=== PATIENT | male | born 1955 | race American Indian/Alaskan Native ===

== ENCOUNTER 2016-12-05 00:19 | Inpatient (IN) | payer OTHER ==
[2016-12-05 01:03] LABS: Basophils % (Auto) 0.5 % (0.0-1.8); Eosinophils % (Auto) 1.7 % (0.0-4.3); Hematocrit 52.9 % (35.5-45.6); Mean Corpuscular HGB Conc 32 % (32-34); Mean Corpuscular Hemoglobin 30 pg (28-32); Mean Corpuscular Volume 94 fl (84-94); Platelet Count 188 K/mm3 (140-440); Red Blood Count 5.62 M/mm3 (3.65-5.03); Red Cell Distribution Width 14.1 % (13.2-15.2)
[2016-12-05 01:20] LABS: Anion Gap 20 mmol/L; Blood Urea Nitrogen 26 mg/dL (9-20); Calcium 9.3 mg/dL (8.4-10.2); Carbon Dioxide 27 mmol/L (22-30); Chloride 101.2 mmol/L (98-107); Glucose 94 mg/dL (75-100); Potassium 3.4 mmol/L (3.6-5.0); Sodium 145 mmol/L (137-145)
[2016-12-05] MEDS ORDERED: LOVENOX SUB-Q STA (08:20)
[2016-12-05] MEDS ORDERED: APRESOLINE IV ONE (08:21)
--- NOTE | 2016-12-05 08:21 | Emergency Department Report ---
ED General Adult HPI - General Chief complaint: Chest Pain Stated complaint: CHEST PAIN Time Seen by Provider: 12/05/16 08:13 Source: patient, RN notes reviewed Mode of arrival: Ambulatory Limitations: No Limitations - History of Present Illness Initial comments: Primary care Dr.: Dr. Butterfield This is a 60-year-old male. He is previously unknown to me. Reports a history of hypertension, gout, high cholesterol, rheumatoid arthritis. Patient reports a distant history of a flutter, which received ablation therapy. He presents to the ER complaining of left-sided chest pressure. It worsens with deep inspiration. No vomiting, diaphoresis or shortness of breath. There is no posterior extremity pain or swelling. No recent trips. No recent hospitalizations. As far as he knows, he is not currently in a flutter. Does not take systemic anticoagulation. There is no history of intracranial hemorrhage, no hematemesis, no bright red blood per rectum. -: Gradual Location: chest Radiation: non-radiation Severity scale (0 -10): 8 Quality: aching Worsens with: other (deep breath) Associated Symptoms: chest pain - Related Data Home Medications Medication Instructions Recorded Confirmed Last Taken Amlodipine Besylate [Norvasc] 5 mg PO DAILY 12/05/16 12/05/16 Unknown Aspirin [Aspirin BABY CHEW TAB] 81 mg PO QDAY 12/05/16 12/05/16 Unknown Atorvastatin Calcium [Lipitor] 20 mg PO QHS 12/05/16 12/05/16 Unknown Clonidine HCl [Kapvay] 0.1 mg PO BID 12/05/16 12/05/16 Unknown Colchicine [Colcrys] 0.6 mg PO DAILY 12/05/16 12/05/16 Unknown Febuxostat [Uloric] 40 mg PO QDAY 12/05/16 12/05/16 Unknown Meloxicam [Mobic] 7.5 mg PO QDAY 12/05/16 12/05/16 Unknown Metformin HCl [Metformin HCl ER] 500 mg PO QHS 12/05/16 12/05/16 Unknown Triamter/Hctz 37.5-25 mg 1 tab PO QAM 12/05/16 12/05/16 Unknown [Maxzide-25] Allergies Allergy/AdvReac Type Severity Reaction Status Date / Time No Known Allergies Allergy Verified 12/05/16 00:35 ED Review of Systems ROS: Stated complaint: CHEST PAIN Other details as noted in HPI Constitutional: denies: fever, malaise Eyes: denies: vision change ENT: denies: epistaxis Respiratory: see HPI Cardiovascular: chest pain Gastrointestinal: denies: abdominal pain, hematemesis, melena, hematochezia Genitourinary: denies: as per HPI, dysuria Musculoskeletal: denies: back pain Skin: denies: rash, lesions Neurological: denies: headache, weakness Psychiatric: as per HPI ED Past Medical Hx - Past Medical History Previous Medical History?: Yes Hx Hypertension: Yes Additional medical history: gout. - Surgical History Past Surgical History?: Yes Additional Surgical History: Cardio verted heart - Social History Smoking Status: Never Smoker Substance Use Type: Alcohol - Medications Home Medications: Home Medications Medication Instructions Recorded Confirmed Last Taken Type Amlodipine Besylate [Norvasc] 5 mg PO DAILY 12/05/16 12/05/16 Unknown History Aspirin [Aspirin BABY CHEW TAB] 81 mg PO QDAY 12/05/16 12/05/16 Unknown History Atorvastatin Calcium [Lipitor] 20 mg PO QHS 12/05/16 12/05/16 Unknown History Clonidine HCl [Kapvay] 0.1 mg PO BID 12/05/16 12/05/16 Unknown History Colchicine [Colcrys] 0.6 mg PO DAILY 12/05/16 12/05/16 Unknown History Febuxostat [Uloric] 40 mg PO QDAY 12/05/16 12/05/16 Unknown History Meloxicam [Mobic] 7.5 mg PO QDAY 12/05/16 12/05/16 Unknown History Metformin HCl [Metformin HCl ER] 500 mg PO QHS 12/05/16 12/05/16 Unknown History Triamter/Hctz 37.5-25 mg 1 tab PO QAM 12/05/16 12/05/16 Unknown History [Maxzide-25] ED Physical Exam - General Limitations: No Limitations General appearance: alert, in no apparent distress - Head Head exam: Present: atraumatic, normocephalic - Eye Eye exam: Present: normal appearance, EOMI. Absent: nystagmus - ENT ENT exam: Present: normal exam, normal orophraynx, mucous membranes moist, normal external ear exam - Neck Neck exam: Present: normal inspection, full ROM. Absent: tenderness, meningismus - Respiratory Respiratory exam: Present: normal lung sounds bilaterally. Absent: respiratory distress, wheezes, rales, rhonchi, stridor, decreased breath sounds - Cardiovascular Cardiovascular Exam: Present: normal rhythm, irregular rhythm, normal heart sounds. Absent: systolic murmur, diastolic murmur, rubs, gallop - GI/Abdominal GI/Abdominal exam: Present: soft, normal bowel sounds. Absent: distended, tenderness, guarding, rebound, rigid, pulsatile mass - Rectal Rectal exam: Present: deferred - Extremities Exam Extremities exam: Present: normal inspection, full ROM, normal capillary refill. Absent: tenderness, pedal edema, joint swelling, calf tenderness - Back Exam Back exam: Present: normal inspection, full ROM. Absent: tenderness, CVA tenderness (R), CVA tenderness (L), muscle spasm, paraspinal tenderness, vertebral tenderness - Neurological Exam Neurological exam: Present: alert, oriented X3, normal gait, other (Extraocular movements intact. Tongue midline. No facial droop. Facial sensation intact to light touch in the V1, V2, V3 distribution bilaterally. 5 and 5 strength in 4 extremities.. Sensation is intact to light touch in 4 extremities.). Absent : motor sensory deficit - Psychiatric Psychiatric exam: Present: normal affect, normal mood - Skin Skin exam: Present: warm, dry, intact, normal color. Absent: rash ED Course Vital Signs 12/05/16 12/05/16 12/05/16 00:22 04:54 06:54 Temperature 98.2 F 97.5 F L 98.4 F Pulse Rate 67 74 77 Respiratory 20 22 15 Rate Blood Pressure 185/120 203/143 Blood Pressure 177/112 [Left] O2 Sat by Pulse 98 97 94 Oximetry 12/05/16 12/05/16 12/05/16 06:59 07:01 10:34 Temperature Pulse Rate 76 74 Respiratory 15 15 Rate Blood Pressure 166/113 Blood Pressure [Left] O2 Sat by Pulse 94 94 Oximetry - Reevaluation(s) Reevaluation #1: 12/05/16 09:40 Differential diagnosis: Acute coronary syndrome, atrial flutter, ammonia, costochondritis Assessment and plan: 60-year-old male with multiple vascular risk factors, now in a flutter, which is new, no pulmonary embolus or DVT risk factors, low risk by well's criteria, moderate risk by KALINA score. By history, no contraindications to systemic anticoagulation. Chest x-ray essentially unremarkable, mild cardiomegaly is noted. Also noted to be somewhat hypertensive. Hydralazine is ordered. Lovenox, at 1 mg/kg is ordered. Case is discussed with the Hospital physician, Dr. Parra, who accepts the patient to his service. Case is discussed with cardiology, Farnaz Pittman/ Dr Horner; state that they will follow as a consult. Patient and family informed. Assessment and plan: 60-year-old male in new onset A. fib/flutter, with chest pain, to be admitted for further cardiac workup/evaluation. ED Medical Decision Making - Lab Data Result diagrams: 12/05/16 00:41 12/05/16 00:41 Vital Signs 12/05/16 12/05/16 12/05/16 00:22 04:54 06:54 Temperature 98.2 F 97.5 F L 98.4 F Pulse Rate 67 74 77 Respiratory 20 22 15 Rate Blood Pressure 185/120 203/143 Blood Pressure 177/112 [Left] O2 Sat by Pulse 98 97 94 Oximetry 12/05/16 12/05/16 06:59 07:01 Temperature Pulse Rate 76 Respiratory 15 15 Rate Blood Pressure Blood Pressure [Left] O2 Sat by Pulse 94 94 Oximetry Labs 12/05/16 12/05/16 12/05/16 00:41 00:41 04:03 WBC 10.0 RBC 5.62 H Hgb 17.0 H Hct 52.9 H MCV 94 MCH 30 MCHC 32 RDW 14.1 Plt Count 188 Lymph % (Auto) 24.4 [place] % (Auto) 10.3 H Eos % (Auto) 1.7 Baso % (Auto) 0.5 Lymph # 2.4 [place] # 1.0 H Eos # 0.2 Baso # 0.1 Seg Neutrophils % 63.1 Seg Neutrophils # 6.3 PT INR APTT Sodium 145 Potassium 3.4 L Chloride 101.2 Carbon Dioxide 27 Anion Gap 20 BUN 26 H Creatinine 0.8 Estimated GFR > 60 BUN/Creatinine Ratio 32.50 Glucose 94 Calcium 9.3 Total Creatine Kinase CK-MB (CK-2) CK-MB (CK-2) Rel Index Troponin T < 0.010 < 0.010 12/05/16 12/05/16 12/05/16 06:33 08:29 09:05 WBC RBC Hgb Hct MCV MCH MCHC RDW Plt Count Lymph % (Auto) [place] % (Auto) Eos % (Auto) Baso % (Auto) Lymph # [place] # Eos # Baso # Seg Neutrophils % Seg Neutrophils # PT 13.6 INR 1.05 APTT 30.0 Sodium Potassium Chloride Carbon Dioxide Anion Gap BUN Creatinine Estimated GFR BUN/Creatinine Ratio Glucose Calcium Total Creatine Kinase 242 H CK-MB (CK-2) 6.8 H CK-MB (CK-2) Rel Index 2.8 Troponin T < 0.010 < 0.010 - EKG Data -: EKG Interpreted by Ia EKG shows normal: axis - EKG Data When compared to previous EKG there are: previous EKG unavailable 12/05/16 09:42 atrial flutter, variable conduction, ventricular rate 79 bpm, QTC 490 ms, abnormal EKG, not morphologically consistent with STEMI. - Radiology Data Radiology results: report reviewed, image reviewed X-ray of the chest demonstrates cardiomegaly. No acute disease. Critical care attestation.: If time is entered above; I have spent that time in minutes in the direct care of this critically ill patient, excluding procedure time. ED Disposition Clinical Impression: Atrial flutter, Chest pain Disposition: OP ADMITTED IP TO THIS HOSP Is pt being admited?: Yes Does the pt Need Aspirin: Yes Condition: Fair
--- NOTE | 2016-12-05 08:46 | XRay Report ---
AP CHEST: HISTORY: chest pain There is mild cardiomegaly. Normal pulmonary vascularity. The lungs are clear. No evidence for pneumonia, CHF or pneumothorax. No overwhelming change since 06/24/08. IMPRESSION: Cardiomegaly.
[2016-12-05 08:52] LABS: INR 1.05 (0.87-1.13)
[2016-12-05] MEDS ORDERED: DULCOLAX PR PRN (08:53)
[2016-12-05] MEDS ORDERED: NITROSTAT SL PRN (08:53)
[2016-12-05] MEDS ORDERED: D50W (25GM) IV PRN (08:57)
[2016-12-05] MEDS ORDERED: ZOFRAN IV PRN (09:00)
[2016-12-05] MEDS ORDERED: TYLENOL PO PRN (09:00)
[2016-12-05 09:34] LABS: Creatine Kinase MB 6.8 ng/mL (0.0-4.0)
[2016-12-05 09:35] LABS: Creatine Kinase 242 units/L (55-170)
[2016-12-05] MEDS ORDERED: BABY ASPIRIN PO STA (09:44)
[2016-12-05] MEDS ORDERED: LEXISCAN IV ONE ×2 (09:57→10:04)
[2016-12-05] MEDS ORDERED: MILK OF MAGNESIA PO PRN (10:00)
[2016-12-05] MEDS ORDERED: SODIUM CHLORIDE FLUSH SYRINGE 10 ML IV PRN (10:00)
[2016-12-05] MEDS ORDERED: NON-FORMULARY (Febuxostat [Uloric] 40 MG) PO SCH (10:00)
--- NOTE | 2016-12-05 10:49 | Admit Criteria Form ---
Admission Criteria Documentation: CARDIOLOGY GRG Clinical Indications for Admission to Inpatient Care ( Place 'X' for any and all applicable criteria): Hospital admission is needed for appropriate care of the patient because of ANY ONE of the following (1): [ ] I. Hemodynamic instability as indicated by ALL of the following (1)(2)(3) (4)(5) [ ]a) Vital signs or other findings not as expected for chronic patient condition or baseline [ ]b) Instability indicated by ANY ONE of the following: [ ]i) Hypotension [ ]ii) Symptomatic Tachycardia unresponsive to treatment ( e.g., analgesia, fluids, sedation as indicated) [ ]iii) Inadequate perfusion indicated by ANY ONE of the following: [ ] 1) Lactic acidosis (> 2 mmol/L) [ ] 2) New abnormal capillary refill (> 3 seconds) [ ] 3) Reduced urine output [ ] 4) New altered mental status [ ]iv) Orthostatic vital sign changes unresponsive to treatment (e.g., fluids) [ ]v) IV inotropic or vasopressor medication required to maintain adequate blood pressure or perfusion [ ] II. Severe heart failure as indicated by ANY ONE of the following(17)(18) [ ]a) Respiratory distress [ ]b) Hypotension [ ]c) Anasarca (refractory to outpatient therapy) [ ]d) Cardiac arrhythmias of immediate concern [ ]e) Myocardial ischemia [ ] III. Cardiac arrhythmias or findings of immediate concern indicated by ANY ONE of the following (19)(20): [ ] a) Heart rhythms that are inherently dangerous or unstable indicated by ANY ONE of the following (21)(22)(23): [ ] i) Resuscitated ventricular fibrillation or cardiac arrest [ ] ii) Ventricular escape rhythm [ ] iii) Sustained ventricular tachycardia (30 seconds or more of ventricular rhythm at greater than 100 beats per minute) [ ] iv) Nonsustained ventricular tachycardia and ANY ONE of the following: [ ] 1) Suspected cardiac ischemia as cause or consequence of ventricular tachycardia [ ] 2) In setting of acute myocarditis [ ] b) Unstable cardiac conduction defects indicated by ANY ONE of the following(23)(24)(25) [ ] i) Type II second-degree atrioventricular block [ ]ii) Third-degree atrioventricular block [ ]iii) New-onset left bundle branch block with suspected myocardial ischemia [ ]c) Any heart rhythm and ANY ONE of the following (21)(22)(26)(27) (28) [ ] i) Continuous long-term ECG monitoring needed (e.g., initiation of drug requiring monitoring for more than 24 hours) [ ] ii) Patient has automatic implanted cardioverter defibrillator that is repeatedly firing, malfunctioning, or in need of immediate adjustment of settings beyond the scope of ambulatory or observation care [ ]d) Heart rhythms of concern due to ANY ONE of the following: [ ] i) Hypotension [ ] ii) Respiratory distress [ ] iii) Association with other significant symptoms (e.g., bradycardia with syncope or ongoing dizziness, supraventricular tachycardia with chest pain (14)(15)(17) [ ] IV. Monitoring for cardiac contusion beyond the scope of observation care needed [A](30)(31)(32) [ ] V. Surgical or device complication (e.g., valve replacement complication , pacemaker dysfunction) (35)(41)(44)(45)(46) [ ] . Inpatient palliative care needed. [B](49) Also use Inpatient Palliative Care Criteria [ ] VII. Nonbacterial thrombotic (marantic) endocarditis (36)(43)(47)(48) [X] VIII. Cardiology condition, symptom, or finding for which emergency and observation care has failed or are not considered appropriate. [ ] IX. Acute valvular disease requiring inpatient as indicated by ANY ONE of the following (41) [ ]a) Acute valvular regurgitation (42) [ ]b) Noninfectious valvulitis (43) [ ]c) Obstructive valve thrombosis [ ]d) Paravalvular leak [ ]e) Other significant valvular disorder remaining after emergency or observation level of care (as appropriate) [ ]X. Pericardial disease requiring inpatient treatment as indicated by ANY ONE of the following (33)(34)(35)(36)(37) [ ]a) Suspected tamponade (38)(39)(40) [ ]b) Hemopericardium [ ]c) Other significant pericardial disorder remaining after emergency or observation level of care (as appropriate) [ ] XI. Cardiac ischemia beyond scope of emergency and observation care. [ ] XII. Hypertension requiring inpatient treatment as indicated by ANY ONE of the following (6)(7)(8) [ ]a) SBP greater than 220 mm Hg or DBP greater than 120 mmHg despite treatment [ ]b) SBP greater than 140 mm Hg or DBP greater than 100 mm Hg with evidence of acute end organ damage as indicated by ANY ONE of the following [ ] i) Altered mental status [ ] ii) Acute renal failure as indicated by new onset of ANY ONE of the following (9)(10)(11)(12)(13) [ ]1) 3-fold rise in serum creatinine from baseline [ ]2) Serum creatinine greater than 4 mg/dL ( 354 micromoles/L) with acute rise greater than 0.5 mg/dL (44.2 micromoles/L) [ ]3) Reduction of more than 75% in estimated glomerular filtration rate from baseline [ ]4) Estimated glomerular filtration rate less than 35 mL/min/1.73m2 (0.59 mL/sec/1.73m2) in child up to 18 years of age [ ]5) Cessation of urine output indicated by ALL of the following [ ]A. Adequate volume status [ ]B. Inadequate urine output as indicated by ANY ONE of the following [ ]a. Urine output less than 0.3 mL/kg/hr for 24 hours [ ]b. Anuria (urine output less than 0.1 mL/kg/hr) for 12 hours [ ] iii) Aortic dissection [ ] iv) Myocardial Ischemia [ ] v) Left ventricular heart failure [ ]vi) Retinal Hemorrhage [ ]vii) Other significant finding [ ]c) Hypertension in child requiring inpatient treatment as indicated by ALL of the following(14)(15)(16) [ ] i) Outpatient treatment not effective, not available, or not appropriate [ ]ii) SBP or DBP greater than 95th percentile for age [ ]iii) Evidence of acute end organ damage as indicated by ANY ONE of the following [ ]1) Altered mental status [ ]2) Acute renal failure as indicated by new onset of ANY ONE of the following(9)(10)(11)(12)(13) [ ]A. 3-fold rise in serum creatinine from baseline [ ]B. Serum creatinine greater than 4 mg/dL (354 micromoles/L) with acute rise greater than 0.5 mg/dL (44.2 micromoles/L) [ ]C. Reduction of more than 75% in estimated glomerular filtration rate from baseline [ ]D. Estimated glomerular filtration rate less than 35 mL/min/1.73m2 (0.59 mL/sec/1.73m2) in child up to 18 years of age [ ]E. Cessation of urine output indicated by ALL of the following [ ]a. Adequate volume status [ ]b. Inadequate urine output as indicated by ANY ONE of the following [ ]i) Urine output less than 0.3 mL/kg/hr for 24 hours [ ]ii) Anuria ( urine output less than 0.1 mL/kg/hr) for 12 hours [ ]3) Severe headache [ ]4) Visual disturbance [ ]5) Retinal hemorrhage [ ]6) Other significant finding [ ]XIII. Complications of transplanted heart indicated by ANY ONE of the following(61): [ ]a) Acute graft rejection requiring inpatient management (eg, intravenous immunosuppression)(62)(63) [ ]b) Acute graft heart failure indicated by ANY ONE of the following(64): [ ]i) Hemodynamic instability [ ]ii) Cardiac arrhythmias of immediate concern [ ]iii) Pulmonary edema that is very severe (eg, mechanical ventilation needed, imminent or likely, need for 100% oxygen to keep oxygen saturation above 90%) [ ]iv) Pulmonary edema that is persistent as indicated by ALL of the following: [ ]1) New need for oxygen therapy to keep oxygen saturation above 90% (or increased FiO2 need from baseline) [ ]2) Has not improved sufficiently with emergency department or observation care IV diuretics or other heart failure treatments[E] [ ]v) Altered mental status that is severe or persistent [ ]vi) Increased creatinine (new on laboratory test) with reduction of more than 50% in estimated glomerular filtration rate from baseline [ ]vii) Progressively (ongoing) rising creatinine (known from past laboratory test) with reduction of more than 25% in estimated glomerular filtration rate from baseline [ ]viii) Acute renal failure [ ]ix) Acute peripheral ischemia (eg, examination shows pulseless, cool, mottled, or cyanotic extremity) [ ]x) Pulmonary artery catheter monitoring needed [ ]xi) Other sign or symptom of heart failure requiring inpatient treatment (ie, too severe or not responsive to outpatient and observation care treatment) [ ]c) Infection requiring inpatient management (eg, Hemodynamic instability, need for intravenous antimicrobial treatment)(66)(67)(68)(69)(70) [ ]d) Cardiac allograft vasculopathy requiring inpatient management ( eg evidence of cardiac ischemia)(71) [ ]e) Other complication of transplanted heart (eg, stroke, severe pulmonary hypertension, severe valvular dysfunction) requiring inpatient management(72) The original [facility] [employer] content created by [facility] has been revised. The portions of the content which have been revised are identified through the use of italic text or in bold, and [facility] has neither reviewed nor approved the modified material. All other unmodified content is copyright [facility] [employer]. Please see references footnoted in the original [facility] [employer] edition 2016 Admission Criteria Met: Yes
[2016-12-05 13:35] LABS: Creatine Kinase MB 6.3 ng/mL (0.0-4.0)
[2016-12-05 13:36] LABS: Creatine Kinase 237 units/L (55-170)
[2016-12-05] MEDS: COLCRYS PO SCH (14:42)
[2016-12-05] MEDS: CATAPRES PO SCH ×2 (14:43→21:44)
[2016-12-05] MEDS: NORVASC PO SCH (14:43)
[2016-12-05 16:18] LABS: Creatine Kinase MB 6.6 ng/mL (0.0-4.0)
--- NOTE | 2016-12-05 16:19 | History and Physical Report ---
History of Present Illness Date of examination: 12/05/16 Date of admission: 12/05/16 08:53 Chief complaint: Chest pain History of present illness: Patient is a pleasant 60-year-old male with a history of hypertension, gout, dyslipidemia, rheumatoid arthritis a flutter status post ablation about 7 years ago successfully stayed in sinus rhythm presents to the hospital today with complaint of chest pain which she describes as exertional and pleuritic in nature. He denies any nausea, vomiting, diarrhea, diaphoresis, chills, melena now saurabh blood per rectum. He does note occasional bilateral lower extremity swelling. Orthopnea.. The chest pain he describes as a 5/10 in intensity aggravated by deep inspiration and exertion. On arrival to the ER was noted to have atrial flutter with slow vascular response. Again patient denies any alleviating factors and his symptoms. He did not feel any fluttering sensation in his chest. He reports that since this ablation he has not been on any antiplatelet. ROS Constitutional: No fever, fatigue or weight loss. Skin: No rash. Eyes: No recent vision problems or eye pain. ENT: No congestion, ear pain, or sore throat. Endocrine: No thyroid problems. Cardiovascular: Chest pain Respiratory: No cough, shortness of breath, congestion, or wheezing. Gastrointestinal: No abdominal pain, nausea, vomiting, or diarrhea. Genitourinary: No dysuria. Musculoskeletal: No joint swelling. Neurologic: No seizures. Hematologic: No unusual bruising or bleeding. Psychiatric: No psychiatric problems, hallucinations or depression. All other systems reviewed and otherwise negative. Past History Past Medical History: arthritis, CAD, diabetes, hypertension, hyperlipidemia Past Surgical History: Other (cardiac ablation) Social history: , full code. denies: smoking, alcohol abuse Family history: no significant family history Medications and Allergies Allergies Allergy/AdvReac Type Severity Reaction Status Date / Time No Known Allergies Allergy Verified 12/05/16 00:35 Home Medications Medication Instructions Recorded Confirmed Last Taken Type Amlodipine Besylate [Norvasc] 5 mg PO DAILY 12/05/16 12/05/16 Unknown History Aspirin [Aspirin BABY CHEW TAB] 81 mg PO QDAY 12/05/16 12/05/16 Unknown History Atorvastatin Calcium [Lipitor] 20 mg PO QHS 12/05/16 12/05/16 Unknown History Clonidine HCl [Kapvay] 0.1 mg PO BID 12/05/16 12/05/16 Unknown History Colchicine [Colcrys] 0.6 mg PO DAILY 12/05/16 12/05/16 Unknown History Febuxostat [Uloric] 40 mg PO QDAY 12/05/16 12/05/16 Unknown History Meloxicam [Mobic] 7.5 mg PO QDAY 12/05/16 12/05/16 Unknown History Metformin HCl [Metformin HCl ER] 500 mg PO QHS 12/05/16 12/05/16 Unknown History Triamter/Hctz 37.5-25 mg 1 tab PO QAM 12/05/16 12/05/16 Unknown History [Maxzide-25] Active Meds: Active Medications Acetaminophen (Tylenol) 650 mg PO Q4H PRN PRN Reason: Pain MILD(1-3)/Fever >100.5/BRAVO Amlodipine Besylate (Norvasc) 2.5 mg PO DAILY [facility] Last Admin: 12/05/16 14:43 Dose: 2.5 mg Aspirin (Baby Aspirin) 81 mg PO QDAY [facility] Atorvastatin Calcium (Lipitor) 20 mg PO QHS [facility] Bisacodyl (Dulcolax) 10 mg MA QDAY PRN PRN Reason: Constipation unrelieved by MOM Clonidine HCl (Catapres) 0.1 mg PO Q12HR [facility] Last Admin: 12/05/16 14:43 Dose: 0.1 mg Colchicine (Colcrys) 0.6 mg PO DAILY [facility] Last Admin: 12/05/16 14:42 Dose: 0.6 mg Dextrose (D50w (25gm)) 50 ml IV PRN PRN PRN Reason: Hypoglycemia Insulin Aspart (Novolog) 0 units SUB-Q ACHS [facility] PRN Reason: Protocol Magnesium Hydroxide (Milk Of Magnesia) 30 ml PO Q4H PRN PRN Reason: Constipation Meloxicam (Mobic) 7.5 mg PO QDAY [facility] Miscellaneous Medication (Febuxostat [Uloric]) 40 mg PO QDAY [facility] Nitroglycerin (Nitrostat) 0.4 mg SL Q5M PRN PRN Reason: Chest Pain Ondansetron HCl (Zofran) 4 mg IV Q8H PRN PRN Reason: N/V unrelieved by Reglan Sodium Chloride (Sodium Chloride Flush Syringe 10 Ml) 10 ml IV PRN PRN PRN Reason: LINE FLUSH Stop: 12/15/16 09:59 Triamterene/HCTZ (Maxzide-25) 1 each PO QAM ANOOP Exam - Physical Exam Narrative exam: VITAL SIGNS: Reviewed. GENERAL: The patient appeared well nourished and normally developed. Vital signs as documented. HEAD: No signs of head trauma. EYES: Pupils are equal. Extraocular motions intact. EARS: Hearing grossly intact. MOUTH: Oropharynx is normal. NECK: No adenopathy, no JVD. CHEST: Chest with clear breath sounds bilaterally. No wheezes, rales, or rhonchi. CARDIAC: Regular rate and rhythm. S1 and S2, without murmurs, gallops, or rubs. VASCULAR: Trace Edema. Peripheral pulses normal and equal in all extremities. ABDOMEN: Soft, without detectable tenderness. No sign of distention. No rebound or guarding, and no masses palpated. Bowel Sounds normal. MUSCULOSKELETAL: Good range of motion of all major joints. Extremities without clubbing, cyanosis. Trace edema. NEUROLOGIC EXAM: Alert and oriented x 3. No focal sensory or strength deficits. Speech normal. Follows commands. PSYCHIATRIC: Mood normal. SKIN: No rash or lesions. - Constitutional Vitals: Temp Pulse Resp BP Pulse Ox 98.4 F 80 15 175/112 94 12/05/16 06:54 12/05/16 15:03 12/05/16 07:01 12/05/16 11:57 12/05/16 07:01 Results - Labs CBC & Chem 7: 12/05/16 00:41 12/05/16 00:41 Labs: Laboratory Last Values WBC 10.0 K/mm3 (4.5-11.0) 12/05/16 00:41 RBC 5.62 M/mm3 (3.65-5.03) H 12/05/16 00:41 Hgb 17.0 gm/dl (11.8-15.2) H 12/05/16 00:41 Hct 52.9 % (35.5-45.6) H 12/05/16 00:41 MCV 94 fl (84-94) 12/05/16 00:41 MCH 30 pg (28-32) 12/05/16 00:41 MCHC 32 % (32-34) 12/05/16 00:41 RDW 14.1 % (13.2-15.2) 12/05/16 00:41 Plt Count 188 K/mm3 (140-440) 12/05/16 00:41 Lymph % (Auto) 24.4 % (13.4-35.0) 12/05/16 00:41 [place] % (Auto) 10.3 % (0.0-7.3) H 12/05/16 00:41 Eos % (Auto) 1.7 % (0.0-4.3) 12/05/16 00:41 Baso % (Auto) 0.5 % (0.0-1.8) 12/05/16 00:41 Lymph # 2.4 K/mm3 (1.2-5.4) 12/05/16 00:41 [place] # 1.0 K/mm3 (0.0-0.8) H 12/05/16 00:41 Eos # 0.2 K/mm3 (0.0-0.4) 12/05/16 00:41 Baso # 0.1 K/mm3 (0.0-0.1) 12/05/16 00:41 Seg Neutrophils % 63.1 % (40.0-70.0) 12/05/16 00:41 Seg Neutrophils # 6.3 K/mm3 (1.8-7.7) 12/05/16 00:41 PT 13.6 Sec. (12.2-14.9) 12/05/16 08:29 INR 1.05 (0.87-1.13) 12/05/16 08:29 APTT 30.0 Sec. (24.2-36.6) 12/05/16 08:29 Sodium 145 mmol/L (137-145) 12/05/16 00:41 Potassium 3.4 mmol/L (3.6-5.0) L 12/05/16 00:41 Chloride 101.2 mmol/L (98-107) 12/05/16 00:41 Carbon Dioxide 27 mmol/L (22-30) 12/05/16 00:41 Anion Gap 20 mmol/L 12/05/16 00:41 BUN 26 mg/dL (9-20) H 12/05/16 00:41 Creatinine 0.8 mg/dL (0.8-1.5) 12/05/16 00:41 Estimated GFR > 60 ml/min 12/05/16 00:41 BUN/Creatinine Ratio 32.50 % 12/05/16 00:41 Glucose 94 mg/dL (75-100) 12/05/16 00:41 Calcium 9.3 mg/dL (8.4-10.2) 12/05/16 00:41 Magnesium 1.7 mg/dL (1.7-2.3) 12/05/16 12:54 Total Creatine Kinase 237 units/L (55-170) H 12/05/16 12:54 CK-MB (CK-2) 6.3 ng/mL (0.0-4.0) H 12/05/16 12:54 CK-MB (CK-2) Rel Index 2.6 (0-4) 12/05/16 12:54 Troponin T < 0.010 ng/mL (0.00-0.029) 12/05/16 12:54 TSH 1.380 mlU/mL (0.270-4.200) 12/05/16 12:54 - Imaging and Cardiology EKG: image reviewed (atrial flutter) Chest x-ray: image reviewed (no acute pathology) Assessment and Plan Assessment and plan: Patient is a pleasant 60-year-old male with a history of hypertension, gout, dyslipidemia, rheumatoid arthritis a flutter status post ablation about 7 years ago successfully stayed in sinus rhythm presents to the hospital today with complaint of chest pain which she describes as exertional and pleuritic in nature. He denies any nausea, vomiting, diarrhea, diaphoresis, chills, melena now saurabh blood per rectum. He does note occasional bilateral lower extremity swelling. Orthopnea.. The chest pain he describes as a 5/10 in intensity aggravated by deep inspiration and exertion. On arrival to the ER was noted to have atrial flutter with slow vascular response. Again patient denies any alleviating factors and his symptoms. He did not feel any fluttering sensation in his chest. He reports that since this ablation he has not been on any antiplatelet lesion. * Atrial flutter with slow vascular response * Atypical chest pain pleuritic in nature * Hypertension * Diabetes mellitus * Gout * Dyslipidemia * Morbid obesity * Hypokalemia Plan * Admit to telemetry consult cardiology as discussed with the cardiology service * Anticoagulation as initiated by the ER physician * Accu-Cheks before meals and at bedtime with insulin low-dose sliding scale * Weight loss modalities discussed in detail * We'll replace potassium and check magnesium levels * We'll order an echocardiogram * Resume home medications * DVT and GI prophylaxis * Discussed plan of care with the patient and spouse all questions answered in detail. Advance Directives: Yes VTE prophylaxis?: Chemical Plan of care discussed with patient/family: Yes
[2016-12-05 16:20] LABS: Creatine Kinase 226 units/L (55-170)
[2016-12-05] MEDS: NOVOLOG SUB-Q SCH ×2 (17:41→21:45)
[2016-12-05] MEDS: MOBIC PO SCH (17:43)
--- NOTE | 2016-12-05 17:43 | Consultation ---
History of Present Illness Consult date: 12/05/16 Consult reason: atrial fibrillation, chest pain History of present illness: The patient's a 60-year-old man with a history of hypertension, diabetes and atrial fibrillation. With regards to his atrial fibrillation, he describes an ablation procedure several years ago, which he states was successful following which he was taking off oral anticoagulation therapy. 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 There is no history of coronary artery disease or heart failure per patient report. He presented to the hospital at this time with atypical, musculoskeletal type left chest pain. The pain was described as worse when he raises his arm or turned from side to side. In the emergency room, ECGs showed atrial fibrillation, with well controlled ventricular response. The duration of the atrial fibrillation is uncertain and is probably chronic, no other recent ECGs are available for comparison. Cardiac isoenzymes were unremarkable. Today, he underwent a Persantine thallium stress test ordered by the medical team. Persantine thallium was negative with no ischemia, and near normal stress perfusion images. Echocardiogram also done today demonstrated normal left ventricle systolic function, with dilatation of the left and right atria consistent with his chronic atrial fibrillation. Past History Past Medical History: atrial fib, arthritis, diabetes, hypertension, hyperlipidemia Past Surgical History: Other (cardiac ablation) Social history: , full code. denies: smoking, alcohol abuse Family history: no significant family history Medications and Allergies Allergies Allergy/AdvReac Type Severity Reaction Status Date / Time No Known Allergies Allergy Verified 12/05/16 00:35 Home Medications Medication Instructions Recorded Confirmed Last Taken Type Amlodipine Besylate [Norvasc] 5 mg PO DAILY 12/05/16 12/05/16 Unknown History Aspirin [Aspirin BABY CHEW TAB] 81 mg PO QDAY 12/05/16 12/05/16 Unknown History Atorvastatin Calcium [Lipitor] 20 mg PO QHS 12/05/16 12/05/16 Unknown History Clonidine HCl [Kapvay] 0.1 mg PO BID 12/05/16 12/05/16 Unknown History Colchicine [Colcrys] 0.6 mg PO DAILY 12/05/16 12/05/16 Unknown History Febuxostat [Uloric] 40 mg PO QDAY 12/05/16 12/05/16 Unknown History Meloxicam [Mobic] 7.5 mg PO QDAY 12/05/16 12/05/16 Unknown History Metformin HCl [Metformin HCl ER] 500 mg PO QHS 12/05/16 12/05/16 Unknown History Triamter/Hctz 37.5-25 mg 1 tab PO QAM 12/05/16 12/05/16 Unknown History [Maxzide-25] Active Meds: Active Medications Acetaminophen (Tylenol) 650 mg PO Q4H PRN PRN Reason: Pain MILD(1-3)/Fever >100.5/BRAVO Amlodipine Besylate (Norvasc) 2.5 mg PO DAILY [facility] Last Admin: 12/05/16 14:43 Dose: 2.5 mg Aspirin (Baby Aspirin) 81 mg PO QDAY [facility] Atorvastatin Calcium (Lipitor) 20 mg PO QHS [facility] Bisacodyl (Dulcolax) 10 mg RI QDAY PRN PRN Reason: Constipation unrelieved by MOM Clonidine HCl (Catapres) 0.1 mg PO Q12HR [facility] Last Admin: 12/05/16 14:43 Dose: 0.1 mg Colchicine (Colcrys) 0.6 mg PO DAILY [facility] Last Admin: 12/05/16 14:42 Dose: 0.6 mg Dextrose (D50w (25gm)) 50 ml IV PRN PRN PRN Reason: Hypoglycemia Enoxaparin Sodium (Lovenox) 120 mg SUB-Q QDAY [facility] Insulin Aspart (Novolog) 0 units SUB-Q ACHS [facility] PRN Reason: Protocol Magnesium Hydroxide (Milk Of Magnesia) 30 ml PO Q4H PRN PRN Reason: Constipation Meloxicam (Mobic) 7.5 mg PO QDAY [facility] Miscellaneous Medication (Febuxostat [Uloric]) 40 mg PO QDAY [facility] Nitroglycerin (Nitrostat) 0.4 mg SL Q5M PRN PRN Reason: Chest Pain Ondansetron HCl (Zofran) 4 mg IV Q8H PRN PRN Reason: N/V unrelieved by Reglan Sodium Chloride (Sodium Chloride Flush Syringe 10 Ml) 10 ml IV PRN PRN PRN Reason: LINE FLUSH Stop: 12/15/16 09:59 Triamterene/HCTZ (Maxzide-25) 1 each PO QAM [facility] Review of Systems Cardiovascular: chest pain, rapid/irregular heart beat, shortness of breath, no orthopnea, no palpitations, no edema, no syncope, no lightheadedness Physical Examination Vital Signs Temp Pulse Resp BP Pulse Ox 98.2 F 67 20 185/120 98 12/05/16 00:22 12/05/16 00:22 12/05/16 00:22 12/05/16 00:22 12/05/16 00:22 General appearance: no acute distress HEENT: Positive: PERRL Neck: Positive: neck supple Cardiac: Positive: irregularly irregular Lungs: Positive: Decreased Breath Sounds Neuro: Positive: Grossly Intact Abdomen: Positive: Soft Male genitourinary: Positive: deferred Skin: Positive: Clear Extremities: Absent: edema Results 12/05/16 00:41 12/05/16 00:41 Cardiac Enzymes 12/05/16 12/05/16 12/05/16 Range/Units 09:05 12:54 15:25 CK-MB (CK-2) 6.8 H 6.3 H 6.6 H (0.0-4.0) ng/mL EKG interpretations - Telemetry EKG Rhythm: Atrial Fibrillation Assessment and Plan - Patient Problems (1) Atrial fibrillation Current Visit: Yes Status: Acute Qualifiers: Atrial fibrillation type: A Plan to address problem: The patient's atrial fibrillation is of uncertain duration, and is probably chronic. He does carry a history of atrial fibrillation/flutter in the remote past and underwent ablation therapy. At this time, his rate control is optimal, but will be prudent to initiate oral anticoagulation therapy with warfarin, target INR 2.0-3.0. (2) Chest pain Current Visit: Yes Status: Acute Qualifiers: Chest pain type: C Plan to address problem: Patient's chest pain is atypical, likely musculoskeletal. Nevertheless, he underwent a Persantine thallium stress test which was negative for ischemia. Echocardiogram shows well-preserved left ventricle systolic function. No further cardiac ischemic workup is indicated.
[2016-12-05] MEDS: MAXZIDE-25 PO SCH (17:44)
--- NOTE | 2016-12-05 21:46 | Treadmill Report ---
THALLIUM STRESS TEST LEFT VENTRICLE: Left ventricular chamber size is at the upper limits of normal. Perfusion study demonstrates a fixed basal inferior defect, worse on the resting study. Normal apical thinning is noted. No reversible defects identified. Gated analysis is not available due to the patient's atrial fibrillation. CONCLUSION: Fixed basal inferior defect, consistent with diaphragmatic attenuation artifact. Otherwise, normal stress myocardial perfusion scan. No ischemia identified on this study. Clinical correlation is recommended. [facility]# [id number] [place]/NTS
[2016-12-06 06:11] LABS: Anion Gap 17 mmol/L; BUN/Creatinine Ratio 25.71; Basophils % (Auto) 0.4 % (0.0-1.8); Blood Urea Nitrogen 18 mg/dL (9-20); Calcium 8.7 mg/dL (8.4-10.2); Carbon Dioxide 27 mmol/L (22-30); Chloride 102.7 mmol/L (98-107); Eosinophils % (Auto) 2.1 % (0.0-4.3); Glucose 121 mg/dL (75-100); Hematocrit 52.9 % (35.5-45.6); Hemoglobin 17.4 gm/dl (11.8-15.2); Mean Corpuscular HGB Conc 33 % (32-34); Mean Corpuscular Hemoglobin 31 pg (28-32); Mean Corpuscular Volume 93 fl (84-94); Platelet Count 182 K/mm3 (140-440); Potassium 3.3 mmol/L (3.6-5.0); Red Cell Distribution Width 14.1 % (13.2-15.2); Sodium 143 mmol/L (137-145); White Blood Count 9.3 K/mm3 (4.5-11.0)
[2016-12-06] MEDS ORDERED: K-DUR PO ONE (08:30)
[2016-12-06] MEDS: NORVASC PO SCH (09:30)
[2016-12-06] MEDS: COLCRYS PO SCH (09:30)
[2016-12-06] MEDS: CATAPRES PO SCH (09:35)
[2016-12-06] MEDS: NOVOLOG SUB-Q SCH ×2 (09:36→13:28)
[2016-12-06] MEDS ORDERED: BABY ASPIRIN PO SCH (10:00)
[2016-12-06] MEDS ORDERED: LOVENOX SUB-Q SCH ×2 (10:00)
--- NOTE | 2016-12-06 10:43 | Progress Note ---
<EDMUNDO ZEPEDA - Last Filed: 12/06/16 10:42> Assessment and Plan Chest pain Persantine thallium was negative with no ischemia. Echocardiogram also done today demonstrated normal left ventricle systolic function, with dilatation of the left and right atria consistent with his chronic atrial fibrillation. Subjective Date of service: 12/06/16 Interval history: No cardiac events reported overnight. Patient has no complaints. Objective Vital Signs Temp Pulse Pulse Pulse Resp BP BP 12/06/16 09:35 70 151/105 12/06/16 09:30 70 151/105 12/06/16 08:20 98.1 F 70 22 151/105 12/06/16 07:59 12/06/16 06:29 98.0 F 83 H 138/93 12/06/16 03:30 68 12/06/16 01:05 98.0 F 82 18 151/89 12/05/16 21:44 152/107 12/05/16 21:13 98.4 F 88 22 152/107 12/05/16 16:00 97.2 F L 74 20 145/85 12/05/16 15:03 80 12/05/16 11:57 79 175/112 12/05/16 11:56 736 H 166/104 12/05/16 11:55 74 178/111 12/05/16 11:54 84 169/107 12/05/16 11:53 101 H 168/81 12/05/16 11:52 71 181/106 Pulse Ox 12/06/16 09:35 12/06/16 09:30 12/06/16 08:20 98 12/06/16 07:59 94 12/06/16 06:29 94 12/06/16 03:30 12/06/16 01:05 95 12/05/16 21:44 12/05/16 21:13 97 12/05/16 16:00 96 12/05/16 15:03 12/05/16 11:57 12/05/16 11:56 12/05/16 11:55 12/05/16 11:54 12/05/16 11:53 12/05/16 11:52 - Physical Examination General: No Apparent Distress HEENT: Positive: PERRL Neck: Positive: neck supple Cardiac: Positive: irregularly irregular Lungs: Positive: Decreased Breath Sounds Neuro: Positive: Grossly Intact Extremities: Absent: edema - Labs and Meds Cardiac Enzymes 12/05/16 12/05/16 Range/Units 12:54 15:25 CK-MB (CK-2) 6.3 H 6.6 H (0.0-4.0) ng/mL CBC 12/06/16 Range/Units 04:00 WBC 9.3 (4.5-11.0) K/mm3 RBC 5.70 H (3.65-5.03) M/mm3 Hgb 17.4 H (11.8-15.2) gm/dl Hct 52.9 H (35.5-45.6) % Plt Count 182 (140-440) K/mm3 Lymph # 2.1 (1.2-5.4) K/mm3 [place] # 1.0 H (0.0-0.8) K/mm3 Eos # 0.2 (0.0-0.4) K/mm3 Baso # 0.0 (0.0-0.1) K/mm3 Comprehensive Metabolic Panel 12/06/16 Range/Units 04:00 Sodium 143 (137-145) mmol/L Potassium 3.3 L (3.6-5.0) mmol/L Chloride 102.7 (98-107) mmol/L Carbon Dioxide 27 (22-30) mmol/L BUN 18 (9-20) mg/dL Creatinine 0.7 L (0.8-1.5) mg/dL Glucose 121 H (75-100) mg/dL Calcium 8.7 (8.4-10.2) mg/dL - Imaging and Cardiology EKG: image reviewed (atrial flutter) <MADHU KAUFFMAN - Last Filed: 12/06/16 10:57> Assessment and Plan patient is doing well. He is rate controlled Will start eliquis, discontinue lovenox start toprol XL discontinue asa and meloxicam may go home cardiac fisher no further cardiac work-up will sign off Objective Vital Signs Temp Pulse Pulse Pulse Resp BP BP 12/06/16 09:35 70 151/105 12/06/16 09:30 70 151/105 12/06/16 08:20 98.1 F 70 22 151/105 12/06/16 07:59 12/06/16 06:29 98.0 F 83 H 138/93 12/06/16 03:30 68 12/06/16 01:05 98.0 F 82 18 151/89 12/05/16 21:44 152/107 12/05/16 21:13 98.4 F 88 22 152/107 12/05/16 16:00 97.2 F L 74 20 145/85 12/05/16 15:03 80 12/05/16 11:57 79 175/112 12/05/16 11:56 736 H 166/104 12/05/16 11:55 74 178/111 12/05/16 11:54 84 169/107 12/05/16 11:53 101 H 168/81 12/05/16 11:52 71 181/106 Pulse Ox 12/06/16 09:35 12/06/16 09:30 12/06/16 08:20 98 12/06/16 07:59 94 12/06/16 06:29 94 12/06/16 03:30 12/06/16 01:05 95 12/05/16 21:44 12/05/16 21:13 97 12/05/16 16:00 96 12/05/16 15:03 12/05/16 11:57 12/05/16 11:56 12/05/16 11:55 12/05/16 11:54 12/05/16 11:53 12/05/16 11:52 - Labs and Meds Cardiac Enzymes 12/05/16 12/05/16 Range/Units 12:54 15:25 CK-MB (CK-2) 6.3 H 6.6 H (0.0-4.0) ng/mL CBC 12/06/16 Range/Units 04:00 WBC 9.3 (4.5-11.0) K/mm3 RBC 5.70 H (3.65-5.03) M/mm3 Hgb 17.4 H (11.8-15.2) gm/dl Hct 52.9 H (35.5-45.6) % Plt Count 182 (140-440) K/mm3 Lymph # 2.1 (1.2-5.4) K/mm3 [place] # 1.0 H (0.0-0.8) K/mm3 Eos # 0.2 (0.0-0.4) K/mm3 Baso # 0.0 (0.0-0.1) K/mm3 Comprehensive Metabolic Panel 12/06/16 Range/Units 04:00 Sodium 143 (137-145) mmol/L Potassium 3.3 L (3.6-5.0) mmol/L Chloride 102.7 (98-107) mmol/L Carbon Dioxide 27 (22-30) mmol/L BUN 18 (9-20) mg/dL Creatinine 0.7 L (0.8-1.5) mg/dL Glucose 121 H (75-100) mg/dL Calcium 8.7 (8.4-10.2) mg/dL
[2016-12-06] MEDS: MOBIC PO SCH (10:50)
[2016-12-06] MEDS: MAXZIDE-25 PO SCH (10:50)
[2016-12-06] MEDS ORDERED: TOPROL XL PO SCH (11:00)
[2016-12-06 13:28] VITALS: BP 149/93
--- NOTE | 2016-12-06 13:43 | Discharge Summary ---
Providers - Providers Date of Admission: 12/05/16 08:53 Date of discharge: 12/06/16 Attending physician: BRIANNE FISHER Primary care physician: OFELIA CRAMER Hospitalization Condition: Stable Hospital course: AFib per Cardiology, Dr. Verde: patient is doing well. He is rate controlled Will start eliquis, discontinue lovenox start toprol XL discontinue asa and meloxicam may go home cardiac fisher no further cardiac work-up will sign off Disposition: DISCHARGED TO HOME OR SELFCARE Core Measure Documentation - Palliative Care Palliative Care/ Comfort Measures: Not Applicable - Core Measures Any of the following diagnoses?: none - VTE Discharge Requirements Deep Vein Thrombosis/Pulmonary Embolism Present on Admission: No Has pt received <5 days of overlap therapy or INR<2.0: No Anticoagulant overlap therapy prescribed at discharge: No Contraindication No Overlap Therapy order at DC: Not Indicated Exam - Physical Exam Narrative exam: GEN: WDWN, NAD, AWAKE, ALERT, ORIENTATED HEENT: NCAT, PERRL, EOMI, OP CLEAR NECK: SUPPLE, NO THYROMEGALY, NO JVD, NO LAD CVS: Irregular regular NORMAL S1S2 LUNGS/CHEST: CTA B, NORMAL CHEST EXPANSION B, GOOD AIR ENTRY B ABD: SOFT NTND, GBS, NO REBOUND OR GUARDING EXT/SKIN: NO SIGNIFICANT EDEMA OR RASH MSK: FROM X 4 EXTREMITIES NEURO: CN 2-12 GROSSLY INTACT, NO new FOCAL DEFICITS PSY: CALM - Constitutional Vitals: Temp Pulse Resp BP Pulse Ox 98.1 F 73 22 149/93 98 12/06/16 08:20 12/06/16 13:27 12/06/16 08:20 12/06/16 13:27 12/06/16 08:20 Plan Activity: advance as tolerated (no strenous activites until cleared by cardiology) Diet: low salt Follow up with: OFELIA CRAMER MD [Primary Care Provider] - 3-5 Days HAYDEE VERDE MD [Staff Physician] - 7 Days Prescriptions: Apixaban [Eliquis] 5 mg PO Q12HR #60 tablet Metoprolol Xl [Metoprolol SUCCINATE ER TAB] 25 mg PO QDAY #30 tablet
[2016-12-06] MEDS ORDERED: ELIQUIS PO SCH (22:00)
== END 2016-12-06 15:58 | disposition home or self-care (01) | DRG 309 ==
LOC: ED 00:19 → 4A 08:53
PROVIDERS: ADMIT Internal Medicine; ATTEND Internal Medicine
DX: I48.92 Unspecified atrial flutter (principal); Z68.41 Body mass index [BMI] 40.0-44.9, adult; I10 Essential (primary) hypertension; E11.9 Type 2 diabetes mellitus without complications; M10.9 Gout, unspecified; E78.5 Hyperlipidemia, unspecified; E66.01 Morbid (severe) obesity due to excess calories; E87.6 Hypokalemia; M06.9 Rheumatoid arthritis, unspecified; M19.90 Unspecified osteoarthritis, unspecified site; I25.10 Atherosclerotic heart disease of native coronary artery without angina pectoris; R07.81 Pleurodynia; I48.91 Unspecified atrial fibrillation; Z79.82 Long term (current) use of aspirin
CPT/HCPCS: 36415; 71010; 78452; 80048; 82550; 82553; 82962; 83735; 84443; 84484; 85025; 85610; 85730; 93005; 93010; 93017; 93306; 96372; 96374; A9270-GY; A9502; J0360; J1650; J1815; J2785

== ENCOUNTER 2021-01-06 17:05 | Observation (INO) | payer MEDICARE, OTHER ==
--- NOTE | 2021-01-06 17:16 | Emergency Department Report ---
HPI - General Time Seen by Provider: 01/06/21 17:11 - HPI HPI: Charge nurse triage/room 2 The patient is a six 5-year-old male present with a chief complaint of left- sided weakness. The patient states that approximate 16: 15 while at work he became dizzy and fell to the ground without losing consciousness. The patient states he had weakness in his left leg at that time and a left facial droop. EMS was called and transported the patient to the ED. Upon arrival to the ED the patient's symptoms had resolved. The patient has a history of atrial fibrillation but states he has not been taking his Eliquis for approximately 8 months. Patient currently denies complaint ED Past Medical Hx - Past Medical History Hx Hypertension: Yes Hx Diabetes: Yes Hx Arthritis: Yes Additional medical history: gout. - Surgical History Additional Surgical History: Cardio verted heart - Family History Family history: no significant - Social History Smoking Status: Never Smoker Substance Use Type: Alcohol - Medications Home Medications: Home Medications Medication Instructions Recorded Confirmed Last Taken Type Amlodipine Besylate [Norvasc] 5 mg PO DAILY #30 12/06/16 01/06/21 Unknown Rx Apixaban [Eliquis] 5 mg PO Q12HR #60 tablet 12/06/16 01/06/21 Unknown Rx Colchicine [Colcrys] 0.6 mg PO DAILY #30 tablet 12/06/16 01/06/21 Unknown Rx Febuxostat [Uloric] 40 mg PO QDAY #30 12/06/16 01/06/21 Unknown Rx Metformin HCl [metFORMIN ER 500 mg PO BID #60 12/06/16 01/06/21 12/04/16 10:00 Rx Gastric] Metoprolol Xl [Metoprolol 25 mg PO QDAY #30 tablet 12/06/16 01/06/21 Unknown Rx SUCCINATE ER TAB] ED Review of Systems ROS: Stated complaint: SYNCOPE Other details as noted in HPI Constitutional: no symptoms reported Eyes: denies: eye pain ENT: denies: throat pain Respiratory: no symptoms reported Cardiovascular: denies: chest pain Endocrine: no symptoms reported Gastrointestinal: denies: abdominal pain Genitourinary: denies: dysuria Musculoskeletal: denies: back pain Neurological: weakness Physical Exam - Physical Exam Physical Exam: GENERAL: The patient is well-developed well-nourished male lying on stretcher not appearing to be in acute distress. [] HEENT: Normocephalic. Atraumatic. Extraocular motions are intact. Patient has moist mucous membranes. NECK: Supple. Trachea midline CHEST/LUNGS: Clear to auscultation. There is no respiratory distress noted. HEART/CARDIOVASCULAR: Irregularly irregular. There is no tachycardia. There is no gallop rub or murmur. ABDOMEN: Abdomen is soft, nontender. Patient has normal bowel sounds. There is no abdominal distention. SKIN: There is no rash. There is no edema. There is no diaphoresis. NEURO: The patient is awake, alert, and oriented. The patient is cooperative. The patient has no focal neurologic deficits. The patient has normal speech. Cranial nerves II through XII grossly intact. Sensation to light touch intact throughout. Patient moves all extremities well. GCS 15. NIHSS= 0 MUSCULOSKELETAL: There is no evidence of acute injury. ED Course - Consultations Consultation #1: 01/06/21 17:48 Case discussed with telemetry neurologist-recommends CTA brain and neck and admission for TIA work-up ED Medical Decision Making - Lab Data Result diagrams: 01/06/21 17:34 01/06/21 17:34 Laboratory Tests 01/06/21 01/06/21 01/06/21 17:14 17:14 17:34 WBC 12.0 H RBC 4.71 Hgb 14.5 Hct 44.7 MCV 95 H MCH 31 MCHC 32 RDW 14.7 Plt Count 247 Lymph % (Auto) 12.6 L [place] % (Auto) 8.6 H Eos % (Auto) 0.2 Baso % (Auto) 0.2 Lymph # (Auto) 1.5 [place] # (Auto) 1.0 H Eos # (Auto) 0.0 Baso # (Auto) 0.0 Seg Neutrophils % 78.4 H Seg Neutrophils # 9.4 H PT INR APTT Thrombin Time VBG pH Sodium Potassium Chloride Carbon Dioxide Anion Gap BUN Creatinine Estimated GFR BUN/Creatinine Ratio Glucose Calcium Total Creatine Kinase CK-MB (CK-2) CK-MB (CK-2) Rel Index Troponin T Urine Color Yellow Urine Turbidity Clear Urine pH 5.0 Ur Specific [place] 1.014 Urine Protein 30 mg/dl Urine Glucose (UA) Neg Urine Ketones Neg Urine Blood Neg Urine Nitrite Neg Urine Bilirubin Neg Urine Urobilinogen < 2.0 Ur Leukocyte Esterase Neg Urine WBC (Auto) 1.0 Urine RBC (Auto) 1.0 U Epithel Cells (Auto) < 1.0 Urine Mucus Few Urine Opiates Screen Presumptive negative Urine Methadone Screen Presumptive negative Ur Barbiturates Screen Presumptive negative Ur Phencyclidine Scrn Presumptive negative Ur Amphetamines Screen Presumptive negative U Benzodiazepines Scrn Presumptive negative Urine Cocaine Screen Presumptive negative U Marijuana (THC) Screen Presumptive negative Drugs of Abuse Note Disclamer 01/06/21 01/06/21 01/06/21 17:34 17:34 17:34 WBC RBC Hgb Hct MCV MCH MCHC RDW Plt Count Lymph % (Auto) [place] % (Auto) Eos % (Auto) Baso % (Auto) Lymph # (Auto) [place] # (Auto) Eos # (Auto) Baso # (Auto) Seg Neutrophils % Seg Neutrophils # PT 14.3 INR 1.12 APTT 31.3 Thrombin Time 16.0 VBG pH 7.440 H Sodium 140 Potassium 3.7 Chloride 105.0 Carbon Dioxide 25 Anion Gap 14 BUN 16 Creatinine 0.5 L Estimated GFR > 60 BUN/Creatinine Ratio 32 Glucose 107 H Calcium 9.0 Total Creatine Kinase 179 H CK-MB (CK-2) 7.7 H CK-MB (CK-2) Rel Index 4.3 H Troponin T < 0.010 Urine Color Urine Turbidity Urine pH Ur Specific [place] Urine Protein Urine Glucose (UA) Urine Ketones Urine Blood Urine Nitrite Urine Bilirubin Urine Urobilinogen Ur Leukocyte Esterase Urine WBC (Auto) Urine RBC (Auto) U Epithel Cells (Auto) Urine Mucus Urine Opiates Screen Urine Methadone Screen Ur Barbiturates Screen Ur Phencyclidine Scrn Ur Amphetamines Screen U Benzodiazepines Scrn Urine Cocaine Screen U Marijuana (THC) Screen Drugs of Abuse Note - EKG Data -: EKG Interpreted by Ri Rate: normal - EKG Data When compared to previous EKG there are: previous EKG unavailable Interpretation: other (Atrial fibrillation at 78 bpm. Trigeminy) - Radiology Data Radiology results: report reviewed (CT head, CTA brain, CTA neck), image reviewed (CT head, CTA brain, CTA neck) [facility] [address] [place] [address] Cat Scan Report Signed Patient: TAMIKO POOLE JR MR#: [id number] : 1955 Acct:[id number] Age/Sex: 65 / M ADM Date: 01/06/21 Loc: ED Attending Dr: Ordering Physician: OSIEL WALTERS MD Date of Service: 01/06/21 Procedure(s): CT angio head Accession Number(s): [id number] cc: OSIEL WALTERS MD CT angio head INDICATION / CLINICAL INFORMATION: 65 years Male; Transient left facial droop and LLE weakness. TECHNIQUE: Thin cut axial images obtained through the head during IV bolus contrast administration. Sagittal, coronal, and 3 plane MIP reconstructions performed by the technologist. NASCET type criteria used evaluate stenoses. Automated exposure control utilized for radiation reduction purposes. COMPARISON: None available. FINDINGS: INTERNAL CAROTID ARTERIES: No significant narrowing appreciated. VERTEBROBASILAR SYSTEM: No significant narrowing appreciated. DISTAL BRANCHES: Distal branches of the anterior, middle, and posterior cerebral arteries are fairly symmetric in appearance and number. Note, some of the distal branches of the distal MCA territory on the left and perhaps the distal LAINEY territories are less well visualized. No definitive vessel occlusion appreciated. ANEURYSM: None identified. ADDITIONAL FINDINGS: Remainder of the surrounding soft tissues are grossly normal. IMPRESSION: No large vessel occlusion appreciated on this CTA of the head. Note, diffusion imaging by MRI may be helpful in evaluating for small areas of ischemia. Signer Name: Cal Serrano MD, III Signed: 01/06/2021 7:20 PM Workstation Name: [id number] Transcribed By: HR Dictated By: Cal Serrano MD Electronically Authenticated By: Cal Serrano MD Signed Date/Time: 01/06/211919 DD/ 07 TD/TT: Print Cancel [facility] [address] [place] [address] Cat Scan Report Signed Patient: TAMIKO POOLE JR MR#: [id number] : 1955 Acct:[id number] Age/Sex: 65 / M ADM Date: 01/06/21 Loc: ED Attending Dr: Ordering Physician: OSIEL WALTERS MD Date of Service: 01/06/21 Procedure(s): CT angio neck Accession Number(s): [id number] cc: OSIEL WALTERS MD CT angio neck INDICATION / CLINICAL INFORMATION: 65 years Male; Transient left facial droop and LLE weakness. TECHNIQUE: Thin cut axial images obtained through the head during IV bolus contrast administration. Sagittal, coronal, and 3 plane MIP toya nstructions performed by the technologist. NASCET type criteria used evaluate stenoses. All CT scans at this location are performed using CT dose reduction for ALARA by means of automated exposure control. COMPARISON: None available. FINDINGS: ARCH: Normal aortic arch branching suggested. Minimal atherosclerotic disease noted. CAROTID ARTERIES: The visualized common and internal carotid arteries are patent. Note, the left internal carotid artery is slightly more prominent than the right VERTEBRAL ARTERIES: Left dominant vertebral system seen. No significant stenosis appreciated. ADDITIONAL FINDINGS: Anterior spondylosis seen at multiple levels in the cervical spine. There is slight anterolisthesis of C6 with respect to C7, which appears to be on degenerative basis. Osseous foraminal narrowing is seen on the left at C6-7 related to facet and uncinate hypertrophy. IMPRESSION: No significant stenosis appreciated on this CTA of the neck. Signer Name: Cal Serrano MD, III Signed: 01/06/2021 7:26 PM Workstation Name: [id number] Transcribed By: HR Dictated By: Cal Serrano MD Electronically Authenticated By: Cal Serrano MD Signed Date/Time: 01/06/211925 DD/ 21 TD/TT: Print Cancel [facility] [address] [place] [address] Cat Scan Report Signed Patient: TAMIKO POOLE JR MR#: [id number] : 1955 Acct:[id number] Age/Sex: 65 / M ADM Date: 01/06/21 Loc: ED Attending Dr: Sole mercado Physician: OSIEL WALTERS MD Date of Service: 01/06/21 Procedure(s): CT head/brain wo con Accession Number(s): [id number] cc: OSIEL WALTERS MD . CT head/brain wo con INDICATION / CLINICAL INFORMATION: 65 years Male; MAIN. Leg weakness and facial droop TECHNIQUE: Routine CT head without contrast. All CT scans at this location are performed using CT dose reduction for ALARA by means of automated exposure control. COMPARISON: None. FINDINGS: BRAIN / INTRACRANIAL CONTENTS: No acute hemorrhage, mass effect, midline shift, hydrocephalus, or acute, large territorial infarct. Mild to moderate, diffuse cerebral and mild cerebellar atrophy. There are mild areas of decreased attenuation in the white matter of the cerebral hemispheres. These are nonspecific findings and may be related to microangiopathy (hypertension, diabetes, atherosclerosis), given the patient's age. It might be difficult to evaluate for small areas of ischemia without diffusion imaging by MRI. CRANIOCERVICAL JUNCTION: No significant abnormality. ORBITS: No significant abnormality of visualized orbits. SINUSES / MASTOIDS: Small mucous retention cyst/polyp seen in the left maxillary antrum. ADDITIONAL FINDINGS: Atherosclerotic disease is seen in the anterior circulation. IMPRESSION: 1. No focal mass, hemorrhage, hydrocephalus, or acute, large territorial infarct. CODE STROKE: Exam Completed (CAMERA PERSON/CDT): 01/06/2021 4:25 PM Exam Reviewed (CAMERA PERSON/CDT): 4:45 PM Time of Communication (CAMERA PERSON/CDT): 4:50 PM Licensed Practitioner Receiving Report: Dr. Walters Signer Name: Cal Serrano MD, III Signed: 01/06/2021 5:48 PM Workstation Name: [id number] Transcribed By: HR Dictated By: Cal Serrano MD Electronically Authenticated By: Cal Serrano MD Signed Date/Time: 01/06/211747 DD/ 28 TD/TT: Print Cancel - Differential Diagnosis TIA Critical care attestation.: If time is entered above; I have spent that time in minutes in the direct care of this critically ill patient, excluding procedure time. ED Disposition Clinical Impression: TIA (transient ischemic attack), Atrial fibrillation, Trigeminy Disposition: OP ADMIT IP TO THIS HOSP Is pt being admited?: Yes Does the pt Need Aspirin: Yes Condition: Stable Referrals: PRIMARY CARE, [Primary Care Provider] - 3-5 Days Time of Disposition: 18:18 (Hospitalist paged (Dr. Bowling))
[2021-01-06 17:47] LABS: Basophils % (Auto) 0.2 % (0.0-1.8); Eosinophils % (Auto) 0.2 % (0.0-4.3); Hematocrit 44.7 % (35.5-45.6); Hemoglobin 14.5 gm/dl (11.8-15.2); Lymphocytes # (Auto) 1.5 K/mm3 (1.2-5.4); Lymphocytes % (Auto) 12.6 % (13.4-35.0); Mean Corpuscular HGB Conc 32 % (32-34); Mean Corpuscular Volume 95 fl (84-94); Monocytes % (Auto) 8.6 % (0.0-7.3); Platelet Count 247 K/mm3 (140-440); Red Blood Count 4.71 M/mm3 (3.65-5.03); Red Cell Distribution Width 14.7 % (13.2-15.2)
--- NOTE | 2021-01-06 17:52 | Cat Scan Report ---
. CT head/brain wo con INDICATION / CLINICAL INFORMATION: 65 years Male; MAIN. Leg weakness and facial droop TECHNIQUE: Routine CT head without contrast. All CT scans at this location are performed using CT dos e reduction for ALARA by means of automated exposure control. COMPARISON: None. FINDINGS: BRAIN / INTRACRANIAL CONTENTS: No acute hemorrhage, mass effect, midline shift, hydrocephalus, or acu te, large territorial infarct. Mild to moderate, diffuse cerebral and mild cerebellar atrophy. There are mild areas of decreased attenuation in the white matter of the cerebral hemispheres. These are nonspecific findings and may be related to microangiopathy (hypertension, diabetes, atheroscleros is), given the patient's age. It might be difficult to evaluate for small areas of ischemia without d iffusion imaging by MRI. CRANIOCERVICAL JUNCTION: No significant abnormality. ORBITS: No significant abnormality of visualized orbits. SINUSES / MASTOIDS: Small mucous retention cyst/polyp seen in the left maxillary antrum. ADDITIONAL FINDINGS: Atherosclerotic disease is seen in the anterior circulation. IMPRESSION: 1. No focal mass, hemorrhage, hydrocephalus, or acute, large territorial infarct. CODE STROKE: Exam Completed (BILINGUAL OPERATOR/CDT): 01/06/2021 4:25 PM Exam Reviewed (BILINGUAL OPERATOR/CDT): 4:45 PM Time of Communication (BILINGUAL OPERATOR/CDT): 4:50 PM Licensed Practitioner Receiving Report: Dr. Dubon Signer Name: Cal Serrano MD, III Signed: 01/06/2021 5:48 PM Workstation Name: [id number]
[2021-01-06 18:03] LABS: Creatine Kinase MB 7.7 ng/mL (0.0-4.0)
[2021-01-06 18:04] LABS: Blood Urea Nitrogen 16 mg/dL (9-20); Hemolysis Index 9
[2021-01-06 18:05] LABS: BUN/Creatinine Ratio 32
[2021-01-06 18:05] LABS: Bilirubin,Urine NEG (Negative); Blood,Urine NEG (Negative); Color,Urine Yellow (Yellow); Mucus,Urine FEW /HPF; Urobilinogen,Urine < 2.0 mg/dL (<2.0)
[2021-01-06 18:12] LABS: Partial Thromboplastin Time 31.3 Sec. (24.2-36.6)
[2021-01-06 18:15] LABS: Amphetamine Screen,Urine PRESUMPTIVE NEGATIVE; Benzodiazepines Screen,Urine PRESUMPTIVE NEGATIVE; Cannabinoid Screen,Urine PRESUMPTIVE NEGATIVE; Cocaine Screen,Urine PRESUMPTIVE NEGATIVE; Methadone Screen,Urine PRESUMPTIVE NEGATIVE; Opiate Screen,Urine PRESUMPTIVE NEGATIVE
[2021-01-06 18:16] LABS: INR 1.12 (0.87-1.13)
--- NOTE | 2021-01-06 19:25 | Cat Scan Report ---
CT angio head INDICATION / CLINICAL INFORMATION: 65 years Male; Transient left facial droop and LLE weakness. TECHNIQUE: Thin cut axial images obtained through the head during IV bolus contrast administration. S agittal, coronal, and 3 plane MIP reconstructions performed by the technologist. NASCET type criteria used evaluate stenoses. Automated exposure control utilized for radiation reduction purposes. COMPARISON: None available. FINDINGS: INTERNAL CAROTID ARTERIES: No significant narrowing appreciated. VERTEBROBASILAR SYSTEM: No significant narrowing appreciated. DISTAL BRANCHES: Distal branches of the anterior, middle, and posterior cerebral arteries are fairly symmetric in appearance and number. Note, some of the distal branches of the distal MCA territory on the left and perhaps the distal LAINEY territories are less well visualized. No definitive vessel occlusion appreciated. ANEURYSM: None identified. ADDITIONAL FINDINGS: Remainder of the surrounding soft tissues are grossly normal. IMPRESSION: No large vessel occlusion appreciated on this CTA of the head. Note, diffusion imaging by MRI may be helpful in evaluating for small areas of ischemia. Signer Name: Cal Serrano MD, III Signed: 01/06/2021 7:20 PM Workstation Name: [id number]
--- NOTE | 2021-01-06 19:31 | Cat Scan Report ---
CT angio neck INDICATION / CLINICAL INFORMATION: 65 years Male; Transient left facial droop and LLE weakness. TECHNIQUE: Thin cut axial images obtained through the head during IV bolus contrast administration. S agittal, coronal, and 3 plane MIP reconstructions performed by the technologist. NASCET type criteria used evaluate stenoses. All CT scans at this location are performed using CT dose reduction for ALAR A by means of automated exposure control. COMPARISON: None available. FINDINGS: ARCH: Normal aortic arch branching suggested. Minimal atherosclerotic disease noted. CAROTID ARTERIES: The visualized common and internal carotid arteries are patent. Note, the left internal carotid artery is slightly more prominent than the right VERTEBRAL ARTERIES: Left dominant vertebral system seen. No significant stenosis appreciated. ADDITIONAL FINDINGS: Anterior spondylosis seen at multiple levels in the cervical spine. There is sli ght anterolisthesis of C6 with respect to C7, which appears to be on degenerative basis. Osseous fora raza narrowing is seen on the left at C6-7 related to facet and uncinate hypertrophy. IMPRESSION: No significant stenosis appreciated on this CTA of the neck. Signer Name: Cal Serrano MD, III Signed: 01/06/2021 7:26 PM Workstation Name: [id number]
[2021-01-06] MEDS ORDERED: METOCLOPRAMIDE 10 MG TAB PO PRN (19:38)
[2021-01-06] MEDS ORDERED: ONDANSETRON 4 MG/2 ML INJ IV PRN (19:38)
[2021-01-06] MEDS ORDERED: PROMETHAZINE 25 MG RECT SUPP PR PRN (19:38)
[2021-01-06] MEDS ORDERED: ACETAMINOPHEN 325 MG TAB PO PRN (19:38)
[2021-01-06] MEDS ORDERED: MAGNESIUM HYDROXIDE (MOM) ORAL LIQD UDC PO PRN (19:38)
[2021-01-06] MEDS ORDERED: ALBUTEROL 2.5 MG/3 ML NEBU IH PRN (19:38)
--- NOTE | 2021-01-06 19:38 | History and Physical Report ---
History of Present Illness Chief complaint: I got weak on one side History of present illness: 65 YO Male with HTN, DM, OA, Gout, Obesity Hypoventilation Syndrome, Atrial Fib on Therapeutic Anticoagulation presents to ED for evaluation. Patient reports "I got dizzy and weak and I could not feel my left side". Patient states that he was in his usual state of health and went to work today. Patient states that while at work he experienced a sudden onset of dizziness, left leg and arm weakness, left-sided facial droop, and inability to speak and subsequently fell to the ground without losing consciousness. EMS was notified and upon arrival the patient was found to be in distress with a neurologic deficit. A code stroke was called and the patient was subsequently transported to [facility] for further care and evaluation of the aforementioned symptoms. Patient seen and evaluated in the emergency department. All lab and imaging studies reviewed. Patient found to have symptoms consistent with CVA. Patient initiated on CVA protocol and placed in observation status and admitted to telemetry. Patient symptoms resolved shortly after arrival to the emergency department. Patient denies fever, chills, chest pain, palpitation, productive cough, skin rash, recent ill contacts, or known exposure to COVID-19. Prior admission on 12/05/2016 reviewed. All medication listed at time of admission has been reconciled. Past History Past Medical History: atrial fib, diabetes, hypertension, other (See HPI) Past Surgical History: No surgical history, Other Social history: . denies: smoking, alcohol abuse, prescription drug abuse Medications and Allergies Allergies Allergy/AdvReac Type Severity Reaction Status Date / Time No Known Allergies Allergy Verified 12/05/16 00:35 Home Medications Medication Instructions Recorded Confirmed Last Taken Type Amlodipine Besylate [Norvasc] 5 mg PO DAILY #30 12/06/16 01/06/21 Unknown Rx Apixaban [Eliquis] 5 mg PO Q12HR #60 tablet 12/06/16 01/06/21 Unknown Rx Colchicine [Colcrys] 0.6 mg PO DAILY #30 tablet 12/06/16 01/06/21 Unknown Rx Febuxostat [Uloric] 40 mg PO QDAY #30 12/06/16 01/06/21 Unknown Rx Metformin HCl [metFORMIN ER 500 mg PO BID #60 12/06/16 01/06/21 12/04/16 10:00 Rx Gastric] Metoprolol Xl [Metoprolol 25 mg PO QDAY #30 tablet 12/06/16 01/06/21 Unknown Rx SUCCINATE ER TAB] Review of Systems Constitutional: no weight loss, no chills, no sweats Ears, nose, mouth and throat: no ear pain, no ear discharge, no tinnitis, no nasal congestion, no nasal discharge Cardiovascular: no chest pain, no palpitations, no syncope, no lightheadedness, no shortness of breath Respiratory: no cough, no hemoptysis, no shortness of breath Gastrointestinal: no nausea, no vomiting, no constipation, no change in bowel habits, no hematemesis Genitourinary Male: no discharge, no urinary frequency, no urinary hesitancy, no incontinence Rectal: no pain Musculoskeletal: no neck stiffness, no neck pain, no shooting arm pain, no arm numbness/tingling, no low back pain, no leg numbness/tingling Integumentary: no rash, no redness, no sores, no jaundice, no boils, no blisters Neurological: weakness, lack of coordination, change in speech, gait dysfunction, motor disturbance, sensory deficit, no numbness, no tingling, no migraines Psychiatric: no anxiety, no change in sleep habits, no hypersomnia, no change in libido, no suicidal ideation Endocrine: no cold intolerance, no excessive thirst, no polydipsia, no polyuria, no nocturia, no excessive sweating Hematologic/Lymphatic: no easy bruising, no easy bleeding, no lymphedema Allergic/Immunologic: no urticaria, no allergic rhinitis, no persistent infections Exam - Constitutional Vitals: Temp Pulse Resp BP Pulse Ox 98.2 F 69 18 174/108 96 01/06/21 17:16 01/06/21 19:30 01/06/21 19:30 01/06/21 19:30 01/06/21 19:30 General appearance: Present: mild distress - EENT Eyes: Present: PERRL ENT: hearing intact, clear oral mucosa - Neck Neck: Present: supple, normal ROM - Respiratory Respiratory effort: normal Respiratory: bilateral: CTA - Cardiovascular Heart Sounds: Present: S1 & S2. Absent: rub, click - Extremities Extremities: pulses symmetrical, No edema Peripheral Pulses: within normal limits - Abdominal General gastrointestinal: Present: soft, non-tender, non-distended, normal bowel sounds Male genitourinary: Present: normal - Integumentary Integumentary: Present: clear, warm, dry - Musculoskeletal Musculoskeletal: gait normal, strength equal bilaterally - Psychiatric Psychiatric: appropriate mood/affect, intact judgment & insight - Neurologic Neurologic: CNII-XII intact, moves all extremities HEART Score - HEART Score Troponin: Troponin T < 0.010 ng/mL (0.00-0.029) 01/06/21 17:34 Results - Labs CBC & Chem 7: 01/06/21 17:34 01/06/21 17:34 Labs: Abnormal lab results 01/06/21 01/06/21 01/06/21 Range/Units 17:34 17:34 17:34 WBC 12.0 H (4.5-11.0) K/mm3 MCV 95 H (84-94) fl Lymph % (Auto) 12.6 L (13.4-35.0) % [place] % (Auto) 8.6 H (0.0-7.3) % [place] # (Auto) 1.0 H (0.0-0.8) K/mm3 Seg Neutrophils % 78.4 H (40.0-70.0) % Seg Neutrophils # 9.4 H (1.8-7.7) K/mm3 VBG pH 7.440 H (7.320-7.420) Creatinine 0.5 L (0.8-1.3) mg/dL Glucose 107 H (75-100) mg/dL Total Creatine Kinase 179 H (55-170) units/L CK-MB (CK-2) 7.7 H (0.0-4.0) ng/mL CK-MB (CK-2) Rel Index 4.3 H (0-4) Assessment and Plan - Patient Problems (1) CVA (cerebral vascular accident) Current Visit: Yes Status: Acute Plan to address problem: CVA protocol: Antiplatelet therapy, CT scan head, neuro check, seizure precautions, aspiration precautions, physical therapy consulted, Occupational Therapy consulted, speech therapy consulted, carotid Doppler, echocardiogram, lipid panel, statin therapy (2) Atrial fibrillation Current Visit: Yes Status: Acute Qualifiers: Atrial fibrillation type: longstanding persistent Qualified Code(s): I48.11 - Longstanding persistent atrial fibrillation Plan to address problem: Continue therapeutic anticoagulation, rate control, (3) Diabetes Current Visit: Yes Status: Acute Plan to address problem: Sliding-scale insulin, continue consistent carbohydrate diet, Accu-Chek, hypoglycemia protocol (4) Hypertension Current Visit: Yes Status: Acute Qualifiers: Hypertension type: essential hypertension Qualified Code(s): I10 - Avis montoyakelsey (primary) hypertension Plan to address problem: Monitor blood pressure every shift, continue medical management. (5) Gout Current Visit: Yes Status: Acute Plan to address problem: Continue colchicine, continue pain management, supportive care. Low protein diet. (6) DVT prophylaxis Current Visit: Yes Status: Acute Plan to address problem: SCD to bilateral lower extremities while in bed, patient is ambulatory (7) Advance care planning Current Visit: Yes Status: Acute Plan to address problem: Disease education conducted, care plan discussed, diagnosis discussed, prognosis discussed, patient knowledges understanding and agreement with care plan, patient is full code, +30 minutes.
[2021-01-06] MEDS ORDERED: ASPIRIN 325 MG TAB PO ONE ×2 (19:44→23:50)
[2021-01-06] MEDS: APIXABAN 5 MG TAB PO SCH (23:00)
--- NOTE | 2021-01-07 08:21 | History and Physical Report ---
History of Present Illness Date of admission: 01/06/21 19:38 Past History Past Medical History: atrial fib, diabetes, hypertension, other (See HPI) Past Surgical History: No surgical history, Other Social history: . denies: smoking, alcohol abuse, prescription drug abuse Medications and Allergies Allergies Allergy/AdvReac Type Severity Reaction Status Date / Time No Known Allergies Allergy Verified 12/05/16 00:35 Home Medications Medication Instructions Recorded Confirmed Last Taken Type Amlodipine Besylate [Norvasc] 5 mg PO DAILY #30 12/06/16 01/06/21 Unknown Rx Apixaban [Eliquis] 5 mg PO Q12HR #60 tablet 12/06/16 01/06/21 Unknown Rx Colchicine [Colcrys] 0.6 mg PO DAILY #30 tablet 12/06/16 01/06/21 Unknown Rx Febuxostat [Uloric] 40 mg PO QDAY #30 12/06/16 01/06/21 Unknown Rx Metformin HCl [metFORMIN ER 500 mg PO BID #60 12/06/16 01/06/21 12/04/16 10:00 Rx Gastric] Metoprolol Xl [Metoprolol 25 mg PO QDAY #30 tablet 12/06/16 01/06/21 Unknown Rx SUCCINATE ER TAB] Celecoxib [celeBREX] 200 mg PO DAILY 01/07/21 01/07/21 Unknown History methylPREDNISolone [Methylpred Dp] 01/07/21 Unknown History Active Meds: Active Medications Acetaminophen (Acetaminophen 325 Mg Tab) 650 mg PO Q4H PRN PRN Reason: Pain, Mild (1-3) Albuterol (Albuterol 2.5 Mg/3 Ml Nebu) 2.5 mg IH Q3HRT PRN PRN Reason: Shortness Of Breath Amlodipine Besylate (Amlodipine 5 Mg Tab) 5 mg PO QDAY ANOOP Apixaban (Apixaban 5 Mg Tab) 5 mg PO Q12HR [facility]; Protocol Last Admin: 01/06/21 23:00 Dose: 5 mg Documented by: Aspirin (Aspirin 325 Mg Tab) 325 mg PO QDAY ANOOP Atorvastatin Calcium (Atorvastatin 40 Mg Tab) 40 mg PO QHS [facility] Last Admin: 01/06/21 23:00 Dose: 40 mg Documented by: Bisacodyl (Bisacodyl 10 Mg Rect Supp) 10 mg [place] QDAY PRN PRN Reason: Constipation Colchicine (Colchicine 0.6 Mg Tab) 0.6 mg PO DAILY ANOOP Magnesium Hydroxide (Magnesium Hydroxide (Mom) Oral Liqd Udc) 30 ml PO Q4H PRN PRN Reason: Constipation Metoclopramide HCl (Metoclopramide 10 Mg Tab) 10 mg PO Q6H PRN PRN Reason: Nausea And Vomiting Metoprolol Succinate (Metoprolol Succinate Xl 25 Mg Tab) 25 mg PO QDAY ANOOP Miscellaneous Medication (Febuxostat [Uloric]) 40 mg PO QDAY ANOOP Ondansetron HCl (Ondansetron 4 Mg/2 Ml Inj) 4 mg IV Q8H PRN PRN Reason: Nausea And Vomiting Promethazine HCl (Promethazine 25 Mg Rect Supp) 25 mg NV Q6H PRN PRN Reason: Nausea And Vomiting Sodium Chloride (Sodium Chloride 0.9% 10 Ml Flush Syringe) 10 ml IV PRN PRN PRN Reason: LINE FLUSH Physical Examination - Vital Signs Vital Signs: Vital Signs Temp Pulse Resp BP Pulse Ox 98.2 F 52 L 18 155/89 99 01/06/21 17:16 01/06/21 17:16 01/06/21 17:16 01/06/21 17:16 01/06/21 17:16 Results - Laboratory Findings CBC and BMP: 01/06/21 17:34 01/06/21 17:34 Abnormal Lab Findings: Abnormal Labs 01/06/21 01/06/21 01/06/21 17:34 17:34 17:34 WBC 12.0 H MCV 95 H Lymph % (Auto) 12.6 L [place] % (Auto) 8.6 H [place] # (Auto) 1.0 H Seg Neutrophils % 78.4 H Seg Neutrophils # 9.4 H VBG pH 7.440 H Creatinine 0.5 L Glucose 107 H Total Creatine Kinase 179 H CK-MB (CK-2) 7.7 H CK-MB (CK-2) Rel Index 4.3 H Assessment and Plan [facility] Consult Note # Demographics Consult Type: Acute Stroke Level 1 (0-4.5 hrs) Patient Location: Emergency Room First Name: Eliceo Last Name: Misbah Date of : 1955 Age: 65 Gender: Male Time of Initial Page (Eastern Time): 01/06/2021, 17:22 Time of Return Call (Eastern Time): 01/06/2021, 17:22 # HPI Chief Complaint: weakness (focal) History: 65 yo man was at work, felt dizzy, felt like the floor was moving, He couldn't move his left leg and left arm was weak as well. He couldn't get up for 5-10 minutes. He has a history of afib and is supposed to be taking Eliquis but has not been taking it recently due to cost. # Scores Time of exam and NIHSS ( Time): 01/06/2021, 17:27 Level of Consciousness 1a: [0] = Alert; keenly responsive LOC Questions 1b: [0] = Answers both questions correctly LOC Commands 1c: [0] = Performs both tasks correctly Best Gaze 2: [0] = Normal Visual 3: [0] = No visual loss Facial Palsy 4: [0] = Normal symmetrical movements Motor Arm Left 5a: [0] = No drift Motor Arm Right 5b: [0] = No drift Motor Leg Left 6a: [0] = No drift Motor Leg Right 6b: [0] = No drift Limb Ataxia 7: [0] = Absent Sensory 8: [0] = Normal Best Language 9: [0] = No aphasia Dysarthria 10: [0] = Normal Extinction and Inattention 11: [0] = No abnormality NIHSS Total: 0 # PMH-FH-SH Past Medical History: A-fib, hypertension, Gout Past Surgical History: Afib ablation Social History: non-smoker, daily drinker Medications: antihypertensive Allergies: NKDA # Assessment Impression: Transient left-sided weaknes concerning for stroke/TIA. With history of Afib he is at high risk for stroke. Given resolution of symptoms he is not a candidate for IV tpa. # Plan Thrombolytic/Intervention: NOT IV Thrombolytic or IA Intervention Thrombolytic Exclusion (< 3 hour window): NIHSS = 0 Intraarterial Exclusion: other (see below), CTA pending Target Blood Pressure: SBP < 220 Labs: hemoglobin A1c, lipid panel Imaging: (urgency: STAT in ED): CT Angiogram Head and CT Angiogram Neck Imaging: (urgency: routine admission): MRI Brain without contrast Diagnostic Test: echo with bubble study Therapy/Evaluation: NPO until swallow evaluation, PT/OT evaluation, speech/swallow consultation Medication: If no stroke on MRI recommend starting anticoagulation for stroke prevention in setting of afib. If MRI brain positive for ischemic stroke would wait 7 days before beginning anticoagualtion DVT Prophylaxis: SCD, chemical DVT prophylaxis Other: LDL < 70, permissive hypertension, telemetry monitoring, I have discussed my recommendations with the referring provider Additional Recommendations: CTA head and neck in ED, call back if abnormal Disposition: admit
[2021-01-07] MEDS ORDERED: FEBUXOSTAT 40 MG PO SCH (10:00)
[2021-01-07] MEDS ORDERED: METOPROLOL SUCCINATE XL 25 MG TAB PO SCH (10:00)
[2021-01-07] MEDS ORDERED: ASPIRIN 325 MG TAB PO SCH (10:00)
[2021-01-07] MEDS ORDERED: amLODIPine 5 MG TAB PO SCH (10:00)
[2021-01-07] MEDS ORDERED: COLCHICINE 0.6 MG TAB PO SCH (10:00)
[2021-01-07] MEDS ORDERED: NON-FORMULARY EACH (Amlodipine Besylate [Norvasc] 2.5 MG Tablet) PO SCH (10:00)
[2021-01-07] MEDS: APIXABAN 5 MG TAB PO SCH ×2 (11:37→21:59)
[2021-01-07] MEDS ORDERED: CELECOXIB 200 MG CAP PO SCH (12:00)
--- NOTE | 2021-01-07 13:35 | Progress Note ---
Assessment and Plan --Possible CVA (cerebral vascular accident) Patient admitted with CVA protocol: Antiplatelet therapy, CT scan head, neuro check, seizure precautions, aspiration precautions, physical therapy consulted, Occupational Therapy consulted, speech therapy consulted, carotid Doppler, echocardiogram, lipid panel, statin therapy Neurology consulted, ordered MRI -result currently pending -- Atrial fibrillation, chronic Continue therapeutic anticoagulation with Eliquis, rate control, -- Diabetes type II Sliding-scale insulin, continue consistent carbohydrate diet, Accu-Chek, hypoglycemia protocol -- Hypertension Monitor blood pressure every shift, continue medical management. -- possible chronic systolic CHF, compensated 2D echo showed EF 40 to 45%, monitor clinically Monitor ins and O's and daily weight -- Gout, acute Continue colchicine, start on empiric steroid, continue pain management, supportive care. Low protein diet. -- DVT prophylaxis SCD to bilateral lower extremities while in bed, patient on Eliquis Daily clinical course: 01/07: Continue supportive care, ordered for MRI brain. Wait for PT OT eval and neuro recommendation. 2D echo showed EF 40 to 45%. monitor daily weight ins and O's Subjective Date of service: 01/07/21 Interval history: Patient seen and examined. Medical records and medication list reviewed. No acute event overnight noted by the RN. Patient denies any chest pain or difficulty breathing. Patient is tolerating diet. Discussed plan of care at bedside with patient. MRI result pending patient wants to go home Objective - Exam Narrative Exam: GENERAL: well-developed and well-nourished elderly male lying on bed appeared to be in no discomfort. HEENT: Normocephalic. Atraumatic. No conjunctival congestion or icterus. Patient has moist mucous membranes. NECK: Supple. Trachea midline. CHEST/LUNGS: Clear to auscultated bilaterally, breathing nonlabored. No wheezes crackles or rhonchi. HEART/CARDIOVASCULAR: Regular in rate and rhythm. S1 and S2 positive. ABDOMEN: Abdomen is soft, nontender. Patient has normal bowel sounds. SKIN: There is no rash. Warm and dry. NEURO: No focal motor deficit. Follows command. MUSCULOSKELETAL: Gouty arthritis on left hand EXTRIMITY: No edema, no cyanosis or clubbing. PSYCH: Cooperative. - Constitutional Vitals: Vital Signs - 12hr 01/07/21 01/07/21 04:13 07:23 Temperature 97.7 F 98.2 F Pulse Rate 57 L 67 Respiratory 18 18 Rate Blood Pressure 159/108 155/101 O2 Sat by Pulse 91 94 Oximetry - Labs CBC & Chem 7: 01/06/21 17:34 01/06/21 17:34 Labs: Abnormal lab results 01/06/21 01/06/21 01/06/21 Range/Units 17:34 17:34 17:34 WBC 12.0 H (4.5-11.0) K/mm3 MCV 95 H (84-94) fl Lymph % (Auto) 12.6 L (13.4-35.0) % [place] % (Auto) 8.6 H (0.0-7.3) % [place] # (Auto) 1.0 H (0.0-0.8) K/mm3 Seg Neutrophils % 78.4 H (40.0-70.0) % Seg Neutrophils # 9.4 H (1.8-7.7) K/mm3 VBG pH 7.440 H (7.320-7.420) Creatinine 0.5 L (0.8-1.3) mg/dL Glucose 107 H (75-100) mg/dL Total Creatine Kinase 179 H (55-170) units/L CK-MB (CK-2) 7.7 H (0.0-4.0) ng/mL CK-MB (CK-2) Rel Index 4.3 H (0-4) HEART Score - HEART Score Troponin: Troponin T < 0.010 ng/mL (0.00-0.029) 01/06/21 17:34
--- NOTE | 2021-01-07 14:08 | Consultation ---
History of Present Illness Consult date: 01/07/21 Reason for Consult: CVA Chief complaint: "I'm okay." History of present illness: 65 yo male with afib (not on anticoag secondary to cost), htn, dm, gout, who presents with an episode of acute onset of vertigo with left-sided weakness. Patient notes he is back to his baseline and notes he has a gout flareup with his left hand. Past History Past Medical History: atrial fib, diabetes, hypertension, other (See HPI) Past Surgical History: No surgical history, Other Social history: . denies: smoking, alcohol abuse, prescription drug abuse Medications and Allergies Allergies Allergy/AdvReac Type Severity Reaction Status Date / Time No Known Allergies Allergy Verified 12/05/16 00:35 Home Medications Medication Instructions Recorded Confirmed Last Taken Type Amlodipine Besylate [Norvasc] 5 mg PO DAILY #30 12/06/16 01/06/21 Unknown Rx Apixaban [Eliquis] 5 mg PO Q12HR #60 tablet 12/06/16 01/06/21 Unknown Rx Colchicine [Colcrys] 0.6 mg PO DAILY #30 tablet 12/06/16 01/06/21 Unknown Rx Febuxostat [Uloric] 40 mg PO QDAY #30 12/06/16 01/06/21 Unknown Rx Metformin HCl [metFORMIN ER 500 mg PO BID #60 12/06/16 01/06/21 12/04/16 10:00 Rx Gastric] Metoprolol Xl [Metoprolol 25 mg PO QDAY #30 tablet 12/06/16 01/06/21 Unknown Rx SUCCINATE ER TAB] Celecoxib [celeBREX] 200 mg PO DAILY 01/07/21 01/07/21 Unknown History methylPREDNISolone [Methylpred Dp] 3 tab PO DAILY 01/07/21 01/07/21 Unknown History Active Meds: Active Medications Acetaminophen (Acetaminophen 325 Mg Tab) 650 mg PO Q4H PRN PRN Reason: Pain, Mild (1-3) Albuterol (Albuterol 2.5 Mg/3 Ml Nebu) 2.5 mg IH Q3HRT PRN PRN Reason: Shortness Of Breath Amlodipine Besylate (Amlodipine 5 Mg Tab) 5 mg PO QDAY ANOOP Last Admin: 01/07/21 11:36 Dose: 5 mg Documented by: Apixaban (Apixaban 5 Mg Tab) 5 mg PO Q12HR [facility]; Protocol Last Admin: 01/07/21 11:37 Dose: 5 mg Documented by: Aspirin (Aspirin 325 Mg Tab) 325 mg PO QDAY [facility] Last Admin: 01/07/21 11:37 Dose: 325 mg Documented by: Atorvastatin Calcium (Atorvastatin 40 Mg Tab) 40 mg PO QHS [facility] Last Admin: 01/06/21 23:00 Dose: 40 mg Documented by: Bisacodyl (Bisacodyl 10 Mg Rect Supp) 10 mg [place] QDAY PRN PRN Reason: Constipation Celecoxib (Celecoxib 200 Mg Cap) 200 mg PO DAILY [facility] Last Admin: 01/07/21 13:44 Dose: 200 mg Documented by: Colchicine (Colchicine 0.6 Mg Tab) 0.6 mg PO DAILY [facility] Last Admin: 01/07/21 11:52 Dose: Not Given Documented by: Magnesium Hydroxide (Magnesium Hydroxide (Mom) Oral Liqd Udc) 30 ml PO Q4H PRN PRN Reason: Constipation Metoclopramide HCl (Metoclopramide 10 Mg Tab) 10 mg PO Q6H PRN PRN Reason: Nausea And Vomiting Metoprolol Succinate (Metoprolol Succinate Xl 25 Mg Tab) 25 mg PO QDAY [facility] Last Admin: 01/07/21 11:36 Dose: 25 mg Documented by: Miscellaneous Medication (Febuxostat [Uloric]) 40 mg PO QDAY [facility] Ondansetron HCl (Ondansetron 4 Mg/2 Ml Inj) 4 mg IV Q8H PRN PRN Reason: Nausea And Vomiting Promethazine HCl (Promethazine 25 Mg Rect Supp) 25 mg [place] Q6H PRN PRN Reason: Nausea And Vomiting Sodium Chloride (Sodium Chloride 0.9% 10 Ml Flush Syringe) 10 ml IV PRN PRN PRN Reason: LINE FLUSH Review of Systems All systems: negative (as per HPI;) Physical Examination - Vital Signs Vital Signs: Vital Signs Temp Pulse Resp BP Pulse Ox 98.2 F 52 L 18 155/89 99 01/06/21 17:16 01/06/21 17:16 01/06/21 17:16 01/06/21 17:16 01/06/21 17:16 - Physical Exam Narrative exam: Gen: nad, well-nourished; Head: normocephalic; Eyes: no gaze deviation; no ptosis; ENT: normal vocalization; CVS: warm and well-perfused; Pulm: no respiratory distress; GI: appears non-distended, protuberant; Ext: no cyanosis at distal extremities with swelling of left distal arm noted; Skin: no acute rash at distal extremities; Heme: no pathologic bruising at distal extremities; Neuro: alert, oriented to name, age, month, year, surroundings, no dysarthria, no aphasia, CN 2 - PERRL, visual colindres intact, CN 3, 4, 6 - EOMI, CN 5 - facial sensation symmetric to light touch, CN 7 - facial movement symmetric, CN 8 - hearing grossly intact, CN 9, 10 - uvula midline, CN 11 - shrug symmetric, CN 12 - tongue midline; Motor - at least 4+/5 in all exts with 4-/5 with left hand poultry sexer (limited by swelling/pain); slight drift of left arm/leg; Sensory - light touch symmetric, Cerebellar - fnf /hts intact, Gait - deferred secondary to fall risk; NIHSS (1a.) Level of Consciousness:0 (1b.) LOC Questions:0 (1c.) LOC Commands:0 (2.) Best Gaze:0 (3.) Visual:0 (4.) Facial Palsy:0 (5a.) Motor Arm, Left:1 (5b.) Motor Arm, Right:0 (6a.) Motor Leg, Left:1 (6b.) Motor Leg, Right:0 (7.) Limb Ataxia:0 (8.) Sensory:0 (9.) Best Language:0 (10.) Dysarthria:0 (11.) Extinction and Inattention:0 NIHSS Total Score:2 Results - Laboratory Findings CBC and BMP: 01/06/21 17:34 01/06/21 17:34 Abnormal Lab Findings: Abnormal Labs 01/06/21 01/06/21 01/06/21 17:34 17:34 17:34 WBC 12.0 H MCV 95 H Lymph % (Auto) 12.6 L [place] % (Auto) 8.6 H [place] # (Auto) 1.0 H Seg Neutrophils % 78.4 H Seg Neutrophils # 9.4 H VBG pH 7.440 H Creatinine 0.5 L Glucose 107 H Total Creatine Kinase 179 H CK-MB (CK-2) 7.7 H CK-MB (CK-2) Rel Index 4.3 H Assessment and Plan 65 yo male with afib (not on anticoag secondary to cost), htn, dm, gout, who presents with an episode of acute onset of vertigo with left-sided weakness. 1. Acute Ischemic Stroke: ASA 325 mg PO qday, MRI Brain w/o contrast, CTA Head/Neck w/ & w/o contrast results pending, TTEcho results pending, confirm LDL/HgbA1C/TSH, elemetry, SBP goal 160-200 mmHg and DBP 80-100 mmHg for 24 more hours. Statin therapy for a goal LDL of 70, when patient passes swallow evaluation. PT/OT/ST/Swallow evaluation. Long-term risk-factor modification, including a strict diet/exercise regimen for secondary stroke prophylaxis. 2. Hypertension - goal SBP 160-200 mmHg and DBP 80-100 mmHg for 24 more hours. 3. Diabetes Mellitus - maintain euglycemia. 4. Dyslipidemia - goal LDL of 70 w/ statin therapy if no contraindications. 5. Left-sided weakness - pt/ot evaluation/monitoring. 6. Paroxysmal atrial fibrillation - recommend anticoagulation for long-term stroke prophylaxis; d/c aspirin when anticoagulation is initiated. Brendan Rae MD Neurology
--- NOTE | 2021-01-07 14:26 | Vascular Lab Report ---
"DUPLEX DOPPLER ULTRASOUND CAROTID, BILATERAL INDICATION: stroke. FINDINGS: RIGHT CAROTID: Mild atherosclerotic plaque. Right CCA velocity: 97 cm/sec. Right ICA peak systolic velocity: 55 cm/sec. ICA/CCA PSV Ratio: 0.6. Right Vertebral Artery: Antegrade flow. LEFT CAROTID: Mild atherosclerotic plaque. Left CCA velocity: 95 cm/sec. Left ICA peak systolic velocity: 110 cm/sec. ICA/CCA PSV Ratio: 1.1. Left Vertebral Artery: Antegrade flow. IMPRESSION: 1. Right Internal Carotid Artery: Less than 50% diameter stenosis. 2. Left Internal Carotid Artery: Less than 50% diameter stenosis. Velocity criteria are extrapolated from diameter data as defined by the Society of Radiologists in Ul trasound Consensus Conference, Radiology 2003; 229;340-346. Degree of || ICA PSV || Plaque || ICA/CCA Stenosis (%) || (cm/sec) || estimate (%) || PSV Ratio - Normal...............<125..............None.................<2.0 - <50....................<125..............<50....................<2.0 - 50-69................125-230.........>50....................2.0-4.0 - >70 but <100....>230..............>50....................>4.0 - Near...................High, low, .....visible................variable occlusion or none - Total...................None.............visible;................N/A occlusion no lumen Signer Name: Beto Medina MD Signed: 01/07/2021 2:21 PM Workstation Name: [id number]"
--- NOTE | 2021-01-07 14:43 | Electrocardiograph Report ---
[facility] Test Date: 2021-01-06 Test Time: 17:32:39 Pat Name: TAMIKO POOLE JR Department: Room: A459 1 [facility] Manager: JEET : 1955 Requested By: OSIEL WALTERS Order Number: [id number] Reading MD: Tru Horner Measurements Intervals [place] Rate: 78 P: UT: QRS: 75 QRSD: 96 T: 72 QT: 425 QTc: 486 Interpretive Statements Atrial fibrillation Frequent ventricular premature complexes No previous ECG available for comparison Electronically Signed On 01-07-2021 14:43:35 EDT by Tru Horner
--- NOTE | 2021-01-07 15:44 | Discharge Summary ---
Providers - Providers Date of Admission: 01/06/21 19:38 Date of discharge: 01/08/21 Attending physician: BAYLEE QUACH 01/06/21 19:38 Occupational Therapy Evaluate and Treat [CONS] Routine Comment: Reason For Exam: Neuro deficits Physical Therapy Evaluation and Treat [CONS] Routine Comment: Reason For Exam: Neuro deficits 01/07/21 10:33 Consult to Physician [CONS] Routine Comment: Consulting Provider: BEAR CHAPMAN Physician Instructions: Reason For Exam: CVA Primary care physician: MARKETING SERVICES COORDINATOR Hospitalization Condition: Stable Pertinent studies: Head CT: Head neck CTA MRI brain 2D echocardiogram Carotid Doppler Hospital course: 65 yo male with afib (not on anticoag secondary to cost), htn, dm, gout, who presents with an episode of acute onset of vertigo with left-sided weakness. Tele-neurology was consulted in the ER. Patient was not found to be a candidate for TPA as his symptoms resolved upon presentation. Patient was placed on antiplatelets, statin and allowed for permissive hypertension. CT head in the ER did not show any acute abnormality. Patient was further evaluated with CTA head/ carotid Doppler, MRI of the brain, 2D echo. MRI of the brain result was pending, CTA head and neck/carotid Doppler showed no acute process/no significant stenosis, 2D echo had EF of 40 to 45%. PT OT evaluated the patient and recommended home with no need. Neurology further evaluated the patient and recommended to continue current management and further outpatient follow-up. Cardiology was consulted for his low EF and chronic atrial fibrillation. He is anticoagulation was changed from Eliquis to Pradaxa which is covered by his insurance. Patient is stable for discharge but MRI result still pending today. Patient did not want to wait for the MRI result and decided to leave [place]. He was extensively counseled to be compliant with his medications, he verbalized understanding. Disposition: DC-01 TO HOME OR SELFCARE Final Discharge Diagnosis (Prints w/discharge instructions): TIA/acute CVA, HTN, DM, HLD, paroxysmal atrial fibrillation, Acute gout, Systolic CHF likely chronic. Time spent for discharge: 34 minutes Core Measure Documentation - Palliative Care Palliative Care/ Comfort Measures: Not Applicable - Core Measures Any of the following diagnoses?: stroke - Stroke Discharge Requirements Statin for LDL = or >70 mg/dl on DC: Yes Anticoag for atrial fib/atrial flutter: Yes Antithrombotic for ischemic stroke: No Reason for no antithrombotic on DC: Medical Contraindication Exam - Physical Exam Narrative exam: GENERAL: well-developed and well-nourished elderly male lying on bed appeared to be in no discomfort. HEENT: Normocephalic. Atraumatic. No conjunctival congestion or icterus. Patient has moist mucous membranes. NECK: Supple. Trachea midline. CHEST/LUNGS: Clear to auscultated bilaterally, breathing nonlabored. No wheezes crackles or rhonchi. HEART/CARDIOVASCULAR: Regular in rate and rhythm. S1 and S2 positive. ABDOMEN: Abdomen is soft, nontender. Patient has normal bowel sounds. SKIN: There is no rash. Warm and dry. NEURO: No focal motor deficit. Follows command. MUSCULOSKELETAL: Gouty arthritis on left hand EXTRIMITY: No edema, no cyanosis or clubbing. PSYCH: Cooperative. - Constitutional Vitals: Temp Pulse Resp BP Pulse Ox 98.2 F 67 18 155/96 94 01/07/21 07:23 01/07/21 07:23 01/07/21 07:23 01/07/21 13:43 01/07/21 07:23 Plan Activity: advance as tolerated Weight Bearing Status: Weight Bear as Tolerated Diet: low fat, low salt Additional Instructions: Please follow your MRI report with your primary care physician within 1 week of discharge. Please also follow-up with truck engine technician for your history of heart failure and atrial fibrillation in 1 week post discharge. Please be compliant with your medications. Please come back to the nearest hospital if your symptoms worsen Follow up with: HAYDEE VERDE MD [Staff Physician] - 7 Days PRIMARY MD FLORA [Primary Care Provider] - 3-5 Days Prescriptions: AtorvaSTATin [Lipitor] 40 mg PO QHS #30 tablet amLODIPine 10 mg PO QDAY #30 tablet Dabigatran [Pradaxa] 150 mg PO BID #60 capsule lisinopriL [Zestril TAB] 2.5 mg PO QDAY #30 tablet
[2021-01-07] MEDS ORDERED: methylPREDNISolone Sod Succinate 40 MG/1 ML INJ IV NR (16:30)
[2021-01-07] MEDS ORDERED: predniSONE 20 MG TAB PO SCH (22:00)
[2021-01-08 08:32] VITALS: BP 139/94
--- NOTE | 2021-01-08 09:46 | Consultation ---
History of Present Illness Consult date: 01/08/21 Consult reason: atrial fibrillation History of present illness: 65M with PMHx of atrial fibrillation with reported ablation approximately 10 years ago, HTN, and DM who was admitted with concern for TIA. He reports he had sudden onset of dizziness and left leg weakness while at work. His symptoms have since resolved. He denies any chest pain, shortness of breath, or palpitations. He has not been taking eliquis for several months due to cost. He has had not any bleeding probelms or falls. Workup notable for head CT for acute abnormalities and no large vessel occlusions on CTA head/neck. MRI brain read is pending. Echo shows LVEF 40-45% with moderate LA dilatation. Troponin x1 negative. Past History Past Medical History: atrial fib, diabetes, hypertension, other (See HPI) Past Surgical History: No surgical history, Other Social history: . denies: smoking, alcohol abuse, prescription drug abuse Medications and Allergies Allergies Allergy/AdvReac Type Severity Reaction Status Date / Time No Known Allergies Allergy Verified 12/05/16 00:35 Home Medications Medication Instructions Recorded Confirmed Last Taken Type Colchicine [Colcrys] 0.6 mg PO DAILY #30 tablet 12/06/16 01/06/21 Unknown Rx Febuxostat [Uloric] 40 mg PO QDAY #30 12/06/16 01/06/21 Unknown Rx Metformin HCl [metFORMIN ER 500 mg PO BID #60 12/06/16 01/06/21 12/04/16 10:00 Rx Gastric] Metoprolol Xl [Metoprolol 25 mg PO QDAY #30 tablet 12/06/16 01/06/21 Unknown Rx SUCCINATE ER TAB] Apixaban [Eliquis] 5 mg PO Q12HR #60 tablet 01/07/21 Unknown Rx AtorvaSTATin [Lipitor] 40 mg PO QHS #30 tablet 01/07/21 Unknown Rx Celecoxib [celeBREX] 200 mg PO DAILY 01/07/21 01/07/21 Unknown History amLODIPine 10 mg PO QDAY #30 tablet 01/07/21 Unknown Rx methylPREDNISolone [Methylpred Dp] 3 tab PO DAILY 01/07/21 01/07/21 Unknown History Active Meds: Active Medications Acetaminophen (Acetaminophen 325 Mg Tab) 650 mg PO Q4H PRN PRN Reason: Pain, Mild (1-3) Albuterol (Albuterol 2.5 Mg/3 Ml Nebu) 2.5 mg IH Q3HRT PRN PRN Reason: Shortness Of Breath Amlodipine Besylate (Amlodipine 5 Mg Tab) 5 mg PO QDAY [facility] Last Admin: 01/07/21 11:36 Dose: 5 mg Documented by: Apixaban (Apixaban 5 Mg Tab) 5 mg PO Q12HR [facility]; Protocol Last Admin: 01/07/21 21:59 Dose: 5 mg Documented by: Aspirin (Aspirin 325 Mg Tab) 325 mg PO QDAY [facility] Last Admin: 01/07/21 11:37 Dose: 325 mg Documented by: Atorvastatin Calcium (Atorvastatin 40 Mg Tab) 40 mg PO QHS [facility] Last Admin: 01/07/21 21:58 Dose: 40 mg Documented by: Bisacodyl (Bisacodyl 10 Mg Rect Supp) 10 mg PA QDAY PRN PRN Reason: Constipation Celecoxib (Celecoxib 200 Mg Cap) 200 mg PO DAILY [facility] Last Admin: 01/07/21 13:44 Dose: 200 mg Documented by: Colchicine (Colchicine 0.6 Mg Tab) 0.6 mg PO DAILY [facility] Last Admin: 01/07/21 11:52 Dose: Not Given Documented by: Magnesium Hydroxide (Magnesium Hydroxide (Mom) Oral Liqd Udc) 30 ml PO Q4H PRN PRN Reason: Constipation Metoclopramide HCl (Metoclopramide 10 Mg Tab) 10 mg PO Q6H PRN PRN Reason: Nausea And Vomiting Metoprolol Succinate (Metoprolol Succinate Xl 25 Mg Tab) 25 mg PO QDAY [facility] Last Admin: 01/07/21 11:36 Dose: 25 mg Documented by: Miscellaneous Medication (Febuxostat [Uloric]) 40 mg PO QDAY [facility] Ondansetron HCl (Ondansetron 4 Mg/2 Ml Inj) 4 mg IV Q8H PRN PRN Reason: Nausea And Vomiting Prednisone (Prednisone 20 Mg Tab) 20 mg PO BID [facility] Last Admin: 01/07/21 21:58 Dose: 20 mg Documented by: Promethazine HCl (Promethazine 25 Mg Rect Supp) 25 mg PA Q6H PRN PRN Reason: Nausea And Vomiting Sodium Chloride (Sodium Chloride 0.9% 10 Ml Flush Syringe) 10 ml IV PRN PRN PRN Reason: LINE FLUSH Review of Systems All systems: negative Physical Examination Vital Signs Temp Pulse Resp BP Pulse Ox 98.2 F 52 L 18 155/89 99 01/06/21 17:16 01/06/21 17:16 01/06/21 17:16 01/06/21 17:16 01/06/21 17:16 Other: Gen-NAD, seen ambulating in halls Neuro-A&Ox3, no slurred speech, moves extremities freely Psych-affect appropriate, no agitation Neck-supple, no JVD CV-irregularly irregular rhythm, regular rate, no murmur appreciated Lungs-CTAB, no wheezing Abd-soft/nt/nd, obese Ext-no pedal edema, no cyanosis Results 01/06/21 17:34 01/06/21 17:34 Assessment and Plan Assessment #Suspected TIA #AF - reported prior ablation, not compliant with eliquis anticoagulation due to cost #Cardiomyopathy, compensated #DM #HTN -Extensively discussed importance of anticoagulation. Patient understands. He is aware to let us know if meds cost-prohibitive. -Will stop eliquis and start pradaxa 150mg PO BID (covered by insurance per patient). -Stop ASA per neuro recs. -Continue metoprolol XL. Add lisinopril 2.5mg PO daily. -Will need stress test for evaluation of cardiomyopathy, which can be done as out-patient.
[2021-01-08] MEDS ORDERED: LISINOPRIL 5 MG TAB PO SCH (11:00)
[2021-01-08] MEDS ORDERED: DABIGATRAN 150 MG CAP PO SCH (11:00)
== END 2021-01-08 11:00 | disposition home or self-care (01) ==
LOC: ED 17:05 → 4A 19:38
PROVIDERS: ADMIT Internal Medicine; ATTEND Internal Medicine
DX: I63.9 Cerebral infarction, unspecified (principal); G45.9 Transient cerebral ischemic attack, unspecified; I48.0 Paroxysmal atrial fibrillation; G81.94 Hemiplegia, unspecified affecting left nondominant side; I10 Essential (primary) hypertension; E11.9 Type 2 diabetes mellitus without complications; E78.5 Hyperlipidemia, unspecified; M10.9 Gout, unspecified; M19.90 Unspecified osteoarthritis, unspecified site; M62.81 Muscle weakness (generalized); R00.8 Other abnormalities of heart beat; Z79.84 Long term (current) use of oral hypoglycemic drugs; Z98.890 Other specified postprocedural states; Z79.82 Long term (current) use of aspirin; Z99.89 Dependence on other enabling machines and devices; Z79.899 Other long term (current) drug therapy
CPT/HCPCS: 36415; 70450; 70496; 70498; 70551; 80048; 80307; 81001; 82550; 82553; 82805; 84484; 85025; 85610; 85670; 85730; 93005; 93306; 93880; 94660; 96374; 97165; 99285; A9270; G0378; J2920; J7512; Q9967